=== PATIENT | male | born 1975 | race African-American/Black ===

== ENCOUNTER 2018-02-05 08:28 | Inpatient (IN) | payer BC ==
[2018-02-05] VITALS (11 sets, daily range): BP systolic 124–170; BP diastolic 68–105; PULSE 82–94; RESP 16–19; TEMP 97.6–99.8; O2SAT 98–100
[~2018-02-05] VITALS: Ht 180.3 cm; Wt 73.8 kg
[~2018-02-05 08:28] MED LIST: CARV12.5 PO; HYDR12.56 PO; HYDRA25 PO; PANT40IN3 PO; PRED20 PO; VENTAER INH; ZITH250T PO
[2018-02-05] MEDS ORDERED: SODIUM CHLOR 0.9% 1000 ML INJ 1,000 ML IV SCH (08:49)
--- NOTE | 2018-02-05 08:56 | PD ---
HPI Chief Complaint: Abnormal Results Time Seen by Provider: 08:40 Travel History International Travel<30 days: No Contact w/Intl Traveler<30days: No Traveled to known affect area: No History of Present Illness HPI The patient is a 42-year-old -[place] male who presents to the emergency department for generalized weakness. The patient states he was diagnosed one year ago polycystic kidney disease. Recently the patient has complained of epigastric abdominal pain, diarrhea, and generalized weakness. The patient saw his primary physician, Dr. Crenshaw, who ordered some outpatient test. The patient states he recently had blood work and a stress test, however, states had difficulty performing the stress test secondary to fatigue. The patient received a phone call today stating that his hemoglobin was 5 and the come to the emergency department for further evaluation. The patient does have a history of alcohol use, drinks approximately 4 beers daily. He does complain of mild epigastric discomfort as well as dark black colored stools that look like "mashed potatoes ". The patient has had a previous endoscopy and colonoscopy approximately 2-3 years ago, but cannot recall the name of the ball point splitter. He does complain of dyspnea upon exertion but denies any chest pain. Symptoms are alleviated at rest. The patient does have a history of hypertension but denies taking any anticoagulants. PFSH Past Medical History Cancer: No Cardiovascular Problems: Yes (HTN) High Cholesterol: Yes Diabetes: No Diminished Hearing: No Endocrine: No Gastrointestinal Disorders: Yes Genitourinary: Yes (polycystic kidney disease) Hypertension: Yes Immune Disorder: No Musculoskeletal: No Neurologic: No Psychiatric: No Reproductive: No Respiratory: Yes Immunizations Current: No Thyroid Disease: No Tetanus Vaccination: Unknown Influenza Vaccination: No Past Surgical History Abdominal Surgery: Yes ([id number]) AICD: No Cardiac Surgery: No Ear Surgery: No Endocrine Surgery: No Eye Surgery: No Genitourinary Surgery: No Oral Surgery: Yes (DENTAL- 2 TEETH PULL) Pacemaker: No Thoracic Surgery: No Other Surgery: Yes (RIGHT HAND FX) Social History Alcohol Use: Yes Tobacco Use: No Substance Use: No Allergies-Medications (Allergen,Severity, Reaction): Coded Allergies: clonidine (Unverified Allergy, Severe, LETHARGY, VOMITING,DIZZINESS, ) lisinopril (Unverified Allergy, Severe, Swelling, 04/09/17) nifedipine (Unverified Allergy, Intermediate, Swelling, 04/09/17) facial edema(mouth area), angioedema Reported Meds & Prescriptions Reported Meds & Active Scripts Active Reported Pantoprazole (Pantoprazole Sodium) 40 Mg Tab 40 Mg PO DAILY Carvedilol 12.5 Mg Tab 12.5 Mg PO BID Review of Systems Except as stated in HPI: all other systems reviewed are Neg General / Constitutional: No: Fever HENT: Positive: Lightheadedness Cardiovascular: Positive: Dyspnea on exertion, No: Chest Pain or Discomfort Respiratory: Positive: Shortness of Breath Gastrointestinal: Positive: Diarrhea, Abdominal Pain, Changes in Bowel Habits, No: Nausea, Vomiting Musculoskeletal: Positive: Weakness Neurologic: Positive: Weakness Physical Exam Narrative GENERAL: Awake, alert, pleasant 42-year-old male who appears his stated age and is in no acute respiratory distress. SKIN: Focused skin assessment warm/dry. HEAD: Atraumatic. Normocephalic. EYES: Pupils equal and round. Lower lids reveal pallor bilaterally. ENT: No nasal bleeding or discharge. Mucous membranes pink and moist. NECK: Trachea midline. No JVD. CARDIOVASCULAR: Regular rate and rhythm. No murmur appreciated. Heart rate in the 80s per RESPIRATORY: No accessory muscle use. Clear to auscultation. Breath sounds equal bilaterally. GASTROINTESTINAL: Abdomen soft, mild epigastric tenderness. No guarding or rigidity. Rectal: No gross blood. Guaiac negative. MUSCULOSKELETAL: No obvious deformities. No clubbing. No cyanosis. No edema. NEUROLOGICAL: Awake and alert. No obvious cranial nerve deficits. Motor grossly within normal limits. Normal speech. PSYCHIATRIC: Appropriate mood and affect; insight and judgment normal. Data Data Last Documented VS Vital Signs Date Time Temp Pulse Resp B/P (MAP) Pulse Ox O2 Delivery O2 Flow Rate FiO2 02/05/18 09:17 98 02/05/18 08:45 18 Room Air 02/05/18 08:31 97.6 89 129/68 (88) Orders Orders Complete Blood Count With Diff (02/05/18 08:49) Comprehensive Metabolic Panel (02/05/18 08:49) Lipase (02/05/18 08:49) Prothrombin Time / Inr (Pt) (02/05/18 08:49) Act Partial Throm Time (Ptt) (02/05/18 08:49) Alcohol (Ethanol) (02/05/18 08:49) Type And Screen (02/05/18 08:49) Ecg Monitoring (02/05/18 08:49) Iv Access Insert/Monitor (02/05/18 08:49) Oximetry (02/05/18 08:49) Pantoprazole Inj (Protonix Inj) (02/05/18 09:00) Sodium Chlor 0.9% 1000 Ml Inj (Ns 1000 M (02/05/18 08:49) Sodium Chloride 0.9% Flush (Ns Flush) (02/05/18 09:00) Retic Count (02/05/18 08:49) Ldh Serum (02/05/18 08:49) Iron/Tibc Profile (02/05/18 08:49) Red Blood Cells (Rbc) (02/05/18 09:39) Blood Product Administration (02/05/18 09:39) Sodium Chlor 0.9% 250 Ml Inj (Ns 250 Ml (02/05/18 09:45) Diphenhydramine Inj (Benadryl Inj) (02/05/18 09:45) Acetaminophen (Tylenol) (02/05/18 09:45) Labs Laboratory Tests Test 02/05/18 08:50 White Blood Count 6.1 TH/MM3 Red Blood Count 2.89 MIL/MM3 Hemoglobin 6.0 GM/DL Hematocrit 20.2 % Mean Corpuscular Volume 70.0 FL Mean Corpuscular Hemoglobin 20.9 PG Mean Corpuscular Hemoglobin Concent 29.8 % Red Cell Distribution Width 20.1 % Platelet Count 94 TH/MM3 Mean Platelet Volume 8.5 FL CBC Comment AUTO DIFF Reticulocyte Count 1.9 % Absolute Reticulocyte Count 54.8 MIL/L Prothrombin Time 10.5 SEC Prothromb Time International Ratio 1.0 RATIO Activated Partial Thromboplast Time 22.2 SEC Blood Urea Nitrogen 7 MG/DL Creatinine 1.15 MG/DL Random Glucose 79 MG/DL Total Protein 8.7 GM/DL Albumin 3.7 GM/DL Calcium Level 8.5 MG/DL Alkaline Phosphatase 178 U/L Aspartate Amino Transf (AST/SGOT) 134 U/L Alanine Aminotransferase (ALT/SGPT) 74 U/L Lactate Dehydrogenase 234 U/L Total Bilirubin 0.6 MG/DL Sodium Level 139 MEQ/L Potassium Level 3.7 MEQ/L Chloride Level 109 MEQ/L Carbon Dioxide Level 19.7 MEQ/L Anion Gap 10 MEQ/L Estimat Glomerular Filtration Rate 84 ML/MIN Iron Level 17 MCG/DL Total Iron Binding Capacity 567 MCG/DL Percent Iron Saturation 3.0 % Lipase 569 U/L Ethyl Alcohol Level 134 MG/DL [facility] Medical Decision Making Medical Screen Exam Complete: Yes Emergency Medical Condition: Yes Medical Record Reviewed: Yes Interpretation(s) Laboratory Tests Test 02/05/18 08:50 White Blood Count 6.1 TH/MM3 Red Blood Count 2.89 MIL/MM3 Hemoglobin 6.0 GM/DL Hematocrit 20.2 % Mean Corpuscular Volume 70.0 FL Mean Corpuscular Hemoglobin 20.9 PG Mean Corpuscular Hemoglobin Concent 29.8 % Red Cell Distribution Width 20.1 % Platelet Count 94 TH/MM3 Mean Platelet Volume 8.5 FL CBC Comment AUTO DIFF Reticulocyte Count 1.9 % Absolute Reticulocyte Count 54.8 MIL/L Prothrombin Time 10.5 SEC Prothromb Time International Ratio 1.0 RATIO Activated Partial Thromboplast Time 22.2 SEC Blood Urea Nitrogen 7 MG/DL Creatinine 1.15 MG/DL Random Glucose 79 MG/DL Total Protein 8.7 GM/DL Albumin 3.7 GM/DL Calcium Level 8.5 MG/DL Alkaline Phosphatase 178 U/L Aspartate Amino Transf (AST/SGOT) 134 U/L Alanine Aminotransferase (ALT/SGPT) 74 U/L Lactate Dehydrogenase 234 U/L Total Bilirubin 0.6 MG/DL Sodium Level 139 MEQ/L Potassium Level 3.7 MEQ/L Chloride Level 109 MEQ/L Carbon Dioxide Level 19.7 MEQ/L Anion Gap 10 MEQ/L Estimat Glomerular Filtration Rate 84 ML/MIN Iron Level 17 MCG/DL Total Iron Binding Capacity 567 MCG/DL Percent Iron Saturation 3.0 % Lipase 569 U/L Ethyl Alcohol Level 134 MG/DL Differential Diagnosis Differential diagnosis includes symptomatic anemia, iron deficiency anemia, GI bleed, peptic ulcer disease, gastritis, alcoholic gastritis, colon carcinoma. Narrative Course IV was established, labs are drawn and sent, and the patient was placed on cardiac telemetry monitoring and continuous pulse oximetry monitoring. EKG was ordered and interpreted. The patient was administer Protonix 40 mg intravenously. CBC and type and screen were sent to lab. The patient's hemoglobin was noted to be low at 6.0. The patient's iron and iron saturation is low, consistent with iron deficiency anemia the patient may have a GI bleed despite the negative rectal examination. The patient will benefit from blood transfusion and admission with gastroenterology evaluation. The patient may benefit from endoscopy and/or colonoscopy. The patient will be admitted to the on-call medical service, I ordered 2 units of PRBCs to be transfused. Patient is comfortable with this plan of care and disposition. Critical Care Narrative Aggregate critical care time was 35 minutes. Time to perform other separately billable procedures was not included in the critical care time. My time did not include minutes spent treating any other patients simultaneously or on activities that did not directly contribute to the patient's treatment. The services I provided to this patient were to treat and/or prevent clinically significant deterioration that could result in: Hemorrhage, hemorrhagic shock, cardiac ischemia, syncope. I provided critical care services requiring my management, as noted below: Chart data review, documentation time, medication orders and management, vital sign assessments/reviewing monitor data, ordering and reviewing lab tests, ordering and interpreting/reviewing x-rays and diagnostic studies, care of the patient and discussion of the patient with the admitting physicians. HemaPrompt Point of Care Internal Pos. & Neg. Controls: Passed Fecal Specimen Occult Blood: Negative Physician Communication Physician Communication The on-call medical service was paged for admission. Diagnosis Primary Impression: Symptomatic anemia Additional Impression: Elevated liver enzymes Admitting Information Admitting Physician Requests: Admit Condition: Stable Humble Becerra MD Feb 05, 2018 08:56
[2018-02-05] MEDS ORDERED: SODIUM CHLORIDE 0.9% FLUSH 10 ML FLUSH IVF PRN (09:00)
[2018-02-05] MEDS ORDERED: PANTOPRAZOLE SODIUM 40 MG VIAL IVP ONE (09:00)
[2018-02-05] MEDS ORDERED: PANT40TA3 PO (09:14)
[2018-02-05] MEDS ORDERED: CARV12.52 PO (09:14)
[2018-02-05 09:19] LABS: PROTHROMBIN TIME - PATIENT 10.5 SEC (9.8-11.6)
[2018-02-05 09:27] LABS: MEAN CORPUSCULAR HEMOGLOBIN 20.9 PG (27.0-34.0); MEAN PLATELET VOLUME 8.5 FL (7.0-11.0); PLATELET COUNT 94 TH/MM3 (150-450); RED BLOOD COUNT 2.89 MIL/MM3 (4.50-5.90); RED CELL DISTRIBUTION WIDTH 20.1 % (11.6-17.2); RETIC # 54.8 MIL/L (20.0-150.0); RETIC % 1.9 % (0.4-3.0); WHITE BLOOD COUNT 6.1 TH/MM3 (4.0-11.0)
[2018-02-05 09:32] LABS: ALBUMIN 3.7 GM/DL (3.4-5.0); ALT (GPT) 74 U/L (12-78); AST (GOT) 134 U/L (15-37); BICARBONATE 19.7 MEQ/L (21.0-32.0); BLOOD UREA NITROGEN 7 MG/DL (7-18); CALCIUM 8.5 MG/DL (8.5-10.1); CHLORIDE 109 MEQ/L (98-107); CREATININE 1.15 MG/DL (0.60-1.30); GLOMERULAR FILTRATION RATE 84 ML/MIN (>89); IRON (FE) 17 MCG/DL (65-175); MEAN CORPUSCULAR HGB CONC 29.8 % (32.0-36.0); SODIUM (NA) 139 MEQ/L (136-145)
[2018-02-05 09:33] LABS: GLUCOSE,RANDOM 79 MG/DL (74-106)
[2018-02-05 09:35] LABS: ALKALINE PHOSPHATASE 178 U/L (45-117); HEMATOCRIT 20.2 % (39.0-51.0); TOTAL BILIRUBIN ADULT 0.6 MG/DL (0.2-1.0); TOTAL IRON BINDING CAPACITY 567 MCG/DL (250-450); TOTAL PROTEIN 8.7 GM/DL (6.4-8.2)
[2018-02-05] MEDS ORDERED: SODIUM CHLOR 0.9% 250 ML INJ 250 ML IV ONE (09:45)
[2018-02-05] MEDS ORDERED: ACETAMINOPHEN 325 MG TAB PO PRN (09:45)
[2018-02-05] MEDS ORDERED: diphenhydrAMINE HCL 50 MG/ML VIAL IV PUSH PRN (09:45)
[2018-02-05 10:07] LABS: BASOPHILS 1 % (0-2); CORRECTED NUCLEATED RBC 1 /100 WBC (0-0); LYMPHOCYTES 13 % (9-44); MONOCYTES 9 % (0-8); NEUTROPHIL # MANUAL DIFF 4.6 TH/MM3 (1.8-7.7); NUCLEATED RED BLOOD CELL 1 (0-0); POLYS (SEG NEUTROPHILS) 75 % (16-70)
[2018-02-05 10:08] LABS: ACANTHOCYTES OCC (NORMAL)
[2018-02-05 10:09] LABS: TEARDROP RBCS 1+ (NORMAL)
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
[2018-02-05] MEDS ORDERED: DIATRIZOATE MEGLUM/DIATRIZOATE SOD 9 ML CUP PO ONE ×2 (15:15→15:30)
[2018-02-05] MEDS ORDERED: PEG (High)/E-LYTE SOLN 4000 ML BTL PO ONE (16:00)
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
[2018-02-05] MEDS ORDERED: IOHEXOL 350 MG/ML 10 ML VIAL (for RAD DIAG) IVCONTRAST ONE (20:35)
[2018-02-05] MEDS: PANTOPRAZOLE SODIUM 40 MG VIAL IV PUSH SCH (21:02)
[2018-02-05] MEDS: CARVEDILOL 12.5 MG TAB PO SCH (21:02)
[2018-02-05] MEDS: hydrALAZINE HCL 25 MG TAB PO SCH (21:12)
[2018-02-06] VITALS (14 sets, daily range): BP systolic 111–182; BP diastolic 68–107; PULSE 66–78; RESP 16–19; TEMP 97.3–99.1; O2SAT 93–100
[2018-02-06] MEDS: hydrALAZINE HCL 25 MG TAB PO SCH ×3 (06:02→21:09)
[2018-02-06 06:43] LABS: INTERNATIONAL NORMALIZED RATIO 1.1 RATIO; PROTHROMBIN TIME - PATIENT 11.1 SEC (9.8-11.6)
[2018-02-06 07:09] LABS: AUTOMATED NEUTROPHIL # 3.9 TH/MM3 (1.8-7.7); BASOPHIL # 0.1 TH/MM3 (0-0.2); BASOPHIL % 1.5 % (0.0-2.0); EOSINOPHIL # 0.2 TH/MM3 (0-0.4); EOSINOPHIL % 2.5 % (0.0-4.0); HEMOGLOBIN 7.2 GM/DL (13.0-17.0); LYMPH % 22.8 % (9.0-44.0); LYMPHOCYTE # 1.4 TH/MM3 (1.0-4.8); MEAN CORPUSCULAR HEMOGLOBIN 22.5 PG (27.0-34.0); MEAN CORPUSCULAR HGB CONC 31.3 % (32.0-36.0); MEAN PLATELET VOLUME 8.6 FL (7.0-11.0); MONO % 10.4 % (0.0-8.0); MONOCYTE # 0.6 TH/MM3 (0-0.9); NEUT % 62.8 % (16.0-70.0); PLATELET COUNT 75 TH/MM3 (150-450); RED BLOOD COUNT 3.19 MIL/MM3 (4.50-5.90); RED CELL DISTRIBUTION WIDTH 20.5 % (11.6-17.2); WHITE BLOOD COUNT 6.2 TH/MM3 (4.0-11.0)
[2018-02-06 07:14] LABS: ALBUMIN 3.1 GM/DL (3.4-5.0); AST (GOT) 87 U/L (15-37); BICARBONATE 22.4 MEQ/L (21.0-32.0); BLOOD UREA NITROGEN 5 MG/DL (7-18); CALCIUM 8.6 MG/DL (8.5-10.1); CHLORIDE 107 MEQ/L (98-107); CREATININE 0.98 MG/DL (0.60-1.30); GLOMERULAR FILTRATION RATE 101 ML/MIN (>89); GLUCOSE,RANDOM 80 MG/DL (74-106); SODIUM (NA) 140 MEQ/L (136-145)
[2018-02-06 07:15] LABS: ALKALINE PHOSPHATASE 148 U/L (45-117); ALT (GPT) 58 U/L (12-78); TOTAL PROTEIN 7.1 GM/DL (6.4-8.2)
[2018-02-06] MEDS: PANTOPRAZOLE SODIUM 40 MG VIAL IV PUSH SCH ×2 (08:19→21:09)
[2018-02-06] MEDS: CARVEDILOL 12.5 MG TAB PO SCH ×2 (08:19→21:09)
[2018-02-06 08:44] LABS: TEARDROP RBCS 1+ (NORMAL)
[2018-02-06] MEDS ORDERED: CHLORHEXIDINE GLUCONATE 2 % 1 PACK (2 CLOTHS) TOPICAL PRN (09:45)
[2018-02-06] MEDS ORDERED: SODIUM CHLORID 0.9% 500 ML IV PRN (09:45)
[2018-02-06] MEDS ORDERED: METOPROLOL TARTRATE 25 MG TAB PO PRN (09:45)
[2018-02-06] MEDS ORDERED: LACTATED RINGER'S 1000 ML IV PRN (09:45)
[2018-02-06] MEDS ORDERED: POVIDONE IODINE 5% (ANTISEPSIS KIT) 4 APPLICATIONS EACH NARE PRN (09:45)
[2018-02-06] MEDS ORDERED: PROPOFOL 200 MG/20 ML AMP IV ONE (12:00)
--- NOTE | 2018-02-06 13:19 | GIPROC ---
[facility] [address] [facility]. [facility], [address] EGD PROCEDURE REPORT EXAM DATE: 02/06/2018 PATIENT NAME: Albin Torres MR #: [id number] BIRTHDATE: 1975 ATTENDING: Kenneth Jones MD ORDER #: [id number] LOOK OUT TOWER FIRE WATCHER: Jamin Cleary and Aria Goel STATUS: inpatient INDICATIONS: The patient is a 42 yr old male here for an EGD due to anemia PROCEDURE PERFORMED: EGD w/ biopsy MEDICATIONS: None and Per Anesthesia. TOPICAL ANESTHETIC: none CONSENT: The patient understands the risks and benefits of the procedure and understands that these risks include, but are not limited to: sedation, allergic reaction, infection, perforation and/or bleeding. Alternative means of evaluation and treatment include, among others: physical exam, x-rays, and/or surgical intervention. The patient elects to proceed with this endoscopic procedure. medical equipment was checked for proper function. Hand hygiene and appropriate measures for infection prevention was taken. After the risks, benefits and alternatives of the procedure were thoroughly explained, Informed consent was verified, confirmed and timeout was successfully executed by the treatment team. The patient was anesthetized with topical anesthesia and the EC-3490Li (Pedi C) endoscope was introduced through the mouth and advanced to the second portion of the duodenum. Retroflexion was performed and was normal The gastroscope was then slowly withdrawn and removed. ESOPHAGUS: There was LA Class A esophagitis noted. Multiple biopsies were performed. A small hiatal hernia was noted. STOMACH: The mucosa of the stomach appeared normal. DUODENUM: The duodenal mucosa appeared normal in the duodenal bulb, 2nd part duodenum, and 3rd part duodenum. ADVERSE EVENTS: There were no complications. IMPRESSIONS: 1. There was esophagitis noted; multiple biopsies were performed to role out Cathy 2. Small hiatal hernia 3. The mucosa of the stomach appeared normal 4. Normal duodenal mucosa in the duodenal bulb, 2nd part duodenum, and 3rd part duodenum 5. Retroflexion was performed and was normal RECOMMENDATIONS: 1. Await biopsy results. Biopsy results will not be ready for 7-10 days. If you don't hear from us in two weeks, call our office for biopsy results. 2. Xray: Small bowel follow through PATIENT CONDITION: stable DISPOSITION: Observation REPEAT EXAM: NONE Kenneth Jones MD eSigned: Kenneth Jones MD 02/06/2018 1:18 PM cc: PATIENT NAME: Albin Torres MR#: [id number]
--- NOTE | 2018-02-06 13:26 | GIPROC ---
[facility] [address] [facility]. [facility], [address] COLONOSCOPY PROCEDURE REPORT EXAM DATE: 02/06/2018 PATIENT NAME: lAbin Torres MR #: [id number] BIRTHDATE: 1975 ENDOSCOPIST: Kenneth Jones MD ORDER #: [id number] DIRECTOR PHARMACOLOGY: Jamin Cleary and Aria Goel STATUS: inpatient INDICATIONS: The patient is a 42 yr old male here for a colonoscopy due to anemia, non-specific PROCEDURE PERFORMED: Colonoscopy with polypectomy MEDICATIONS: None and Per Anesthesia. PREP QUALITY: poor PREP TYPE:GoLytely ESTIMATED BLOOD LOSS: None CONSENT: The patient understands the risks and benefits of the procedure and understands that these risks include, but are not limited to: sedation, allergic reaction, infection, perforation and/or bleeding. Alternative means of evaluation and treatment include, among others: physical exam, x-rays, and/or surgical intervention. The patient elects to proceed with this endoscopic procedure. medical equipment was checked for proper function. Hand hygiene and appropriate measures for infection prevention was taken. After the risks, benefits and alternatives of the procedure were thoroughly explained, Informed consent was verified, confirmed and timeout was successfully executed by the treatment team. A digital exam revealed no abnormalities of the rectum The Pentax EC-3490Li endoscope was introduced through the anus and advanced to the cecum, which was identified by both the appendix and ileocecal valve. The instrument was then slowly withdrawn as the colon was fully examined. COLON FINDINGS: Trace amounts of stool were present throughout the entire examined colon. A smooth and polypoid shaped sessile polyp ranging between 3-5mm in size was found in the sigmoid colon. A polypectomy was performed with cold forceps. The resection was complete and the polyp tissue was completely retrieved. Moderate sized internal hemorrhoids were found. Retroflexed views revealed no abnormalities The scope was then completely withdrawn from the patient and the procedure terminated. PROCEDURE WITHDRAWAL TIME:8minutes ADVERSE EVENTS: There were no complications. IMPRESSIONS: 1. Trace amounts of stool were present throughout the entire examined colon limiting the exam 2. A sessile polyp ranging between 3-5mm in size was found in the sigmoid colon; polypectomy was performed with cold forceps 3. Moderate sized internal hemorrhoids RECOMMENDATIONS: 1. Await biopsy results. Biopsy results will not be ready for 7-10 days. If you don't hear from us in two weeks, call our office for results. 2. Xray for Small bowel follow through RECALL: Return 3 months Colonoscopy with better prep. Kenneth Jones MD eSigned: Kenneth Jones MD 02/06/2018 1:25 PM cc:
[2018-02-06] MEDS ORDERED: SODIUM CHLOR 0.9% 250 ML INJ 250 ML IV ONE (15:00)
[2018-02-06] MEDS ORDERED: FUROSEMIDE 20 MG/2 ML VIAL IV PUSH ONE (15:00)
[2018-02-06] MEDS ORDERED: ACETAMINOPHEN 325 MG TAB PO PRN (15:00)
[2018-02-06] MEDS ORDERED: diphenhydrAMINE HCL 25 MG CAP PO PRN (15:00)
[2018-02-06 16:10] LABS: HEMATOCRIT 26.4 % (39.0-51.0); HEMOGLOBIN 8.2 GM/DL (13.0-17.0); MEAN CELL VOLUME 71.7 FL (80.0-100.0); MEAN CORPUSCULAR HEMOGLOBIN 22.4 PG (27.0-34.0); MEAN CORPUSCULAR HGB CONC 31.3 % (32.0-36.0); MEAN PLATELET VOLUME 8.4 FL (7.0-11.0); PLATELET COUNT 94 TH/MM3 (150-450); RED BLOOD COUNT 3.68 MIL/MM3 (4.50-5.90); RED CELL DISTRIBUTION WIDTH 20.5 % (11.6-17.2); WHITE BLOOD COUNT 6.7 TH/MM3 (4.0-11.0)
--- NOTE | 2018-02-06 16:20 | HHI.PR ---
Subjective Remarks The patient denies abdominal pain, planes of abdominal distention. Denies nausea or vomiting. States that initially dark stools had subsided, however went to the restroom later and had one episode of dark stool. Denies dizziness Blood pressure noted to be elevated. Objective Vitals Vital Signs Date Time Temp Pulse Resp B/P (MAP) Pulse Ox O2 Delivery O2 Flow Rate FiO2 02/06/18 16:00 98.1 77 18 182/99 (126) 100 02/06/18 13:04 98.3 72 18 154/92 (112) 100 02/06/18 12:00 97.7 78 18 148/86 (106) 100 02/06/18 08:00 98.7 73 18 155/70 (98) 100 02/06/18 03:49 98.4 72 19 162/87 (112) 99 02/06/18 00:00 98.3 75 17 158/97 (117) 100 02/05/18 21:14 97.9 88 19 154/102 100 02/05/18 21:00 99.8 83 19 164/99 100 02/05/18 20:00 98.3 87 17 167/92 (117) 100 02/05/18 16:53 99.6 89 16 165/105 100 02/05/18 16:44 99.4 94 16 162/102 100 02/05/18 16:33 99.4 82 16 167/104 100 02/05/18 16:21 99.6 85 16 170/98 100 I/O 02/05/18 02/05/18 02/05/18 02/06/18 02/06/18 02/06/18 07:00 15:00 23:00 07:00 15:00 23:00 Intake Total 820 ml 300 ml 250 ml Balance 820 ml 300 ml 250 ml Intake Oral 300 ml Packed Cells 800 ml Blood Product IV Normal Saline Flush 20 ml Other 250 ml # Voids 3 3 # Bowel Movements 2 1 Result Diagram: 02/06/1861102/06/18611 Imaging Last Impressions Abdomen/Pelvis CT 02/05/18 0000 Signed Impressions: CONCLUSION: 1. Nonspecific fluid distention of the colon. 2. Polycystic kidneys. 3. Hepatic steatosis. 4. Gallstones. Objective Remarks AAOx3 NAD Pale conjunctiva Procedures Status post EGD which showed esophagitis, biopsies performed. Small hiatal hernia. Status post colonoscopy which showed trace amount of stool therefore limited exam. A sessile polyp ranging between 3-5 mm in size found in the sigmoid colon. Polypectomy was performed with cold forceps. Moderate sized internal hemorrhoids. A/P Problem List: (1) Symptomatic anemia ICD Code: D64.9 - Anemia, unspecified Status: Acute Plan: Most likely due to GI bleed. EGD and colonoscopy performed today and as described above. TAYLOR globin trended up from 6.0 to seven-point 2:02 units of packed red blood cells. Transfuse 2 units of packed red blood cells for hemoglobin goal of more than 90. Continue to monitor hemoglobin. Continue PPI. Diet as per question GI recommendations. (2) Generalized weakness ICD Code: R53.1 - Weakness Status: Acute Plan: Likely secondary to symptomatic anemia. Managed as above. (3) Hypertension ICD Code: I10 - Essential (primary) hypertension Status: Chronic Plan: Seems to be uncontrolled at this moment. Patient currently on carvedilol 12.5 minutes p.o. twice daily. Increase hydralazine dose to 50 mg p.o. every 8 hours. Placed on clonidine as needed for systolic blood pressure more than 160. (4) Alcohol intoxication ICD Code: F10.929 - Alcohol use, unspecified with intoxication, unspecified Plan: Alcohol level on admission at 134. There seems to be a component of alcohol abuse. There are no signs of active withdrawal. Consult about negative health effects of alcohol and encourage alcohol cessation /abstinence. (5) Transaminitis ICD Code: R74.0 - Nonspecific elevation of levels of transaminase and lactic acid dehydrogenase [LDH] Status: Acute Plan: Patient with elevated AST at 134 which is trending down. Continue to monitor LFTs. Likely secondary to alcohol abuse. Will check hepatitis profile. (6) Elevated lipase ICD Code: R74.8 - Abnormal levels of other serum enzymes Status: Acute Plan: Enzymes not elevated enough to be diagnostic of acute pancreatitis. Likely elevated secondary to esophagitis. Continue PPI. Problem Qualifiers (1) Hypertension: Qualified Codes: I10 - Essential (primary) hypertension (2) Alcohol intoxication: Qualified Codes: F10.920 - Alcohol use, unspecified with intoxication, uncomplicated Rajinder Mcclure MD Feb 06, 2018 16:19
[2018-02-06] MEDS ORDERED: cloNIDine HCL 0.1 MG TAB PO PRN (16:30)
[2018-02-07 02:11] VITALS: BP 160/90; PULSE 66
[2018-02-07 04:40] VITALS: BP 184/100; PULSE 63; RESP 20; TEMP 98.9; O2SAT 100
[2018-02-07] MEDS: hydrALAZINE HCL 25 MG TAB PO SCH (05:36)
[2018-02-07] MEDS: PANTOPRAZOLE SODIUM 40 MG VIAL IV PUSH SCH ×2 (07:26→21:04)
[2018-02-07] MEDS: CARVEDILOL 12.5 MG TAB PO SCH ×2 (07:26→21:04)
[2018-02-07 07:35] VITALS: BP 177/103; PULSE 68; RESP 19; TEMP 97.7; O2SAT 100
[2018-02-07] MEDS ORDERED: hydrALAZINE HCL 25 MG TAB PO ONE (09:45)
--- NOTE | 2018-02-07 09:48 | HHI.PR ---
Subjective Remarks BP severely elevated Patient denies any further melanotic stools. Denies abdominal pain, nausea. Denies cp/sob Objective Vitals Vital Signs Date Time Temp Pulse Resp B/P (MAP) Pulse Ox O2 Delivery O2 Flow Rate FiO2 02/07/18 07:35 97.7 68 19 177/103 (127) 100 02/07/18 04:40 98.9 63 20 184/100 (128) 100 02/07/18 02:11 66 160/90 (113) 02/06/18 23:20 98.7 68 18 178/102 (127) 02/06/18 23:20 98.7 68 18 178/102 100 02/06/18 21:30 97.9 76 18 172/107 100 02/06/18 21:04 97.3 71 18 175/105 100 02/06/18 19:57 98.5 66 18 160/106 (124) 100 02/06/18 19:19 160/104 (122) 02/06/18 17:48 98.4 73 16 153/92 100 02/06/18 17:32 98.1 74 16 157/89 100 02/06/18 17:17 72 16 167/93 100 02/06/18 17:15 98.3 70 16 159/99 100 02/06/18 16:00 98.1 77 18 182/99 (126) 100 02/06/18 13:04 98.3 72 18 154/92 (112) 100 02/06/18 12:00 97.7 78 18 148/86 (106) 100 I/O 02/06/18 02/06/18 02/06/18 02/07/18 02/07/18 02/07/18 07:00 15:00 23:00 07:00 15:00 23:00 Intake Total 300 ml 250 ml 430 ml 410 ml Balance 300 ml 250 ml 430 ml 410 ml Intake Oral 300 ml Packed Cells 400 ml 400 ml Blood Product IV Normal Saline Flush 30 ml 10 ml Other 250 ml # Voids 3 3 2 1 # Bowel Movements 2 1 Result Diagram: 02/06/18 1515 02/06/18 0612 Imaging Last Impressions Abdomen/Pelvis CT 02/05/18 0000 Signed Impressions: CONCLUSION: 1. Nonspecific fluid distention of the colon. 2. Polycystic kidneys. 3. Hepatic steatosis. 4. Gallstones. Objective Remarks AAOx3 NAD Pale conjunctiva Procedures Status post EGD which showed esophagitis, biopsies performed. Small hiatal hernia. Status post colonoscopy which showed trace amount of stool therefore limited exam. A sessile polyp ranging between 3-5 mm in size found in the sigmoid colon. Polypectomy was performed with cold forceps. Moderate sized internal hemorrhoids. A/P Problem List: (1) Symptomatic anemia ICD Code: D64.9 - Anemia, unspecified Status: Acute Plan: Most likely due to GI bleed. EGD and colonoscopy performed today and as described above. TAYLOR globin trended up from 6.0 to seven-point 2:02 units of packed red blood cells. Transfuse 2 units of packed red blood cells for hemoglobin goal of more than 90. Continue to monitor hemoglobin. Continue PPI. Diet as per question GI recommendations. 02/07 is 9:45 AM and a.m. labs ordered are still pending. The patient denies any further melena and has not had a bowel movement since yesterday. Diet as tolerated. (2) Generalized weakness ICD Code: R53.1 - Weakness Status: Acute Plan: Likely secondary to symptomatic anemia. Managed as above. (3) Hypertension ICD Code: I10 - Essential (primary) hypertension Status: Chronic Plan: Seems to be uncontrolled at this moment. Patient currently on carvedilol 12.5 minutes p.o. twice daily. Increase hydralazine dose to 50 mg p.o. every 8 hours. Placed on clonidine as needed for systolic blood pressure more than 160. 02/07 patient with severely elevated blood pressure. Increase hydralazine to 75 mg p.o. 3 times daily, continue Coreg at 12.5 mg p.o. twice daily. We will discontinue clonidine as needed since the patient is allergic to this medication and will place on Vasotec IV as needed for systolic blood pressure more than 160. (4) Alcohol intoxication ICD Code: F10.929 - Alcohol use, unspecified with intoxication, unspecified Plan: Alcohol level on admission at 134. There seems to be a component of alcohol abuse. There are no signs of active withdrawal. Consult about negative health effects of alcohol and encourage alcohol cessation /abstinence. (5) Transaminitis ICD Code: R74.0 - Nonspecific elevation of levels of transaminase and lactic acid dehydrogenase [LDH] Status: Acute Plan: Patient with elevated AST at 134 which is trending down. Continue to monitor LFTs. Likely secondary to alcohol abuse. Will check hepatitis profile. 02/07 labs pending. (6) Elevated lipase ICD Code: R74.8 - Abnormal levels of other serum enzymes Status: Acute Plan: Enzymes not elevated enough to be diagnostic of acute pancreatitis. Likely elevated secondary to esophagitis. Continue PPI. (7) Polycystic kidney disease ICD Code: Q61.3 - Polycystic kidney, unspecified Status: Acute Plan: With normal kidney function. Follow-up as an outpatient. (8) Hepatic steatosis ICD Code: K76.0 - Fatty (change of) liver, not elsewhere classified Plan: Likely contributing to increased AST. Recommended alcohol cessation. (9) Cholelithiasis ICD Code: K80.20 - Calculus of gallbladder without cholecystitis without obstruction Status: Acute Plan: Patient asymptomatic without abdominal pain. There is no need for cholecystectomy at this time. Follow-up as an outpatient. Problem Qualifiers (1) Hypertension: Qualified Codes: I10 - Essential (primary) hypertension (2) Alcohol intoxication: Qualified Codes: F10.920 - Alcohol use, unspecified with intoxication, uncomplicated (3) Cholelithiasis: Qualified Codes: K80.20 - Calculus of gallbladder without cholecystitis without obstruction Rajinder Mcclure MD Feb 07, 2018 09:48
[2018-02-07 09:59] LABS: AUTOMATED NEUTROPHIL # 4.8 TH/MM3 (1.8-7.7); BASOPHIL # 0.1 TH/MM3 (0-0.2); BASOPHIL % 1.4 % (0.0-2.0); EOSINOPHIL # 0.2 TH/MM3 (0-0.4); EOSINOPHIL % 3.1 % (0.0-4.0); HEMATOCRIT 30.9 % (39.0-51.0); HEMOGLOBIN 9.9 GM/DL (13.0-17.0); LYMPH % 18.5 % (9.0-44.0); LYMPHOCYTE # 1.3 TH/MM3 (1.0-4.8); MEAN CORPUSCULAR HEMOGLOBIN 23.7 PG (27.0-34.0); MEAN PLATELET VOLUME 8.6 FL (7.0-11.0); MONO % 9.4 % (0.0-8.0); MONOCYTE # 0.7 TH/MM3 (0-0.9); NEUT % 67.6 % (16.0-70.0); PLATELET COUNT 91 TH/MM3 (150-450); RED BLOOD COUNT 4.18 MIL/MM3 (4.50-5.90); RED CELL DISTRIBUTION WIDTH 20.8 % (11.6-17.2); WHITE BLOOD COUNT 7.1 TH/MM3 (4.0-11.0)
[2018-02-07] MEDS ORDERED: ENALAPRILAT 1.25 MG/ML VIAL IV PUSH PRN (10:00)
[2018-02-07 10:37] LABS: TEARDROP RBCS 1+ (NORMAL)
[2018-02-07 11:46] LABS: ALBUMIN 3.3 GM/DL (3.4-5.0); AST (GOT) 65 U/L (15-37); BICARBONATE 25.6 MEQ/L (21.0-32.0); BLOOD UREA NITROGEN 7 MG/DL (7-18); CALCIUM 8.6 MG/DL (8.5-10.1); CHLORIDE 101 MEQ/L (98-107); CREATININE 0.98 MG/DL (0.60-1.30); GLOMERULAR FILTRATION RATE 101 ML/MIN (>89); GLUCOSE,RANDOM 73 MG/DL (74-106); SODIUM (NA) 138 MEQ/L (136-145)
[2018-02-07 11:51] LABS: ALKALINE PHOSPHATASE 141 U/L (45-117); ALT (GPT) 52 U/L (12-78); MAGNESIUM 1.9 MG/DL (1.5-2.5); PHOSPHORUS 4.2 MG/DL (2.5-4.9); TOTAL BILIRUBIN ADULT 0.8 MG/DL (0.2-1.0); TOTAL PROTEIN 7.9 GM/DL (6.4-8.2)
[2018-02-07 12:09] VITALS: BP 177/106; PULSE 67; RESP 20; TEMP 97.9; O2SAT 100
--- NOTE | 2018-02-07 13:27 | HHI.PR ---
Objective Vitals Vital Signs Date Time Temp Pulse Resp B/P (MAP) Pulse Ox O2 Delivery O2 Flow Rate FiO2 02/07/18 12:09 97.9 67 20 177/106 (129) 100 02/07/18 07:35 97.7 68 19 177/103 (127) 100 02/07/18 04:40 98.9 63 20 184/100 (128) 100 02/07/18 02:11 66 160/90 (113) 02/06/18 23:20 98.7 68 18 178/102 (127) 02/06/18 23:20 98.7 68 18 178/102 100 02/06/18 21:30 97.9 76 18 172/107 100 02/06/18 21:04 97.3 71 18 175/105 100 02/06/18 19:57 98.5 66 18 160/106 (124) 100 02/06/18 19:19 160/104 (122) 02/06/18 17:48 98.4 73 16 153/92 100 02/06/18 17:32 98.1 74 16 157/89 100 02/06/18 17:17 72 16 167/93 100 02/06/18 17:15 98.3 70 16 159/99 100 02/06/18 16:00 98.1 77 18 182/99 (126) 100 I/O 02/06/18 02/06/18 02/06/18 02/07/18 02/07/18 02/07/18 07:00 15:00 23:00 07:00 15:00 23:00 Intake Total 300 ml 250 ml 430 ml 410 ml Balance 300 ml 250 ml 430 ml 410 ml Intake Oral 300 ml Packed Cells 400 ml 400 ml Blood Product IV Normal Saline Flush 30 ml 10 ml Other 250 ml # Voids 3 3 2 1 # Bowel Movements 2 1 Result Diagram: 02/07/18 0745 02/07/18 0745 Imaging Last Impressions Small Bowel X-Ray 02/07/18 0600 Signed Impressions: CONCLUSION: Negative for obstruction. Subtle abnormalities cannot be excluded with Gastrografin. Abdomen/Pelvis CT 02/05/18 0000 Signed Impressions: CONCLUSION: 1. Nonspecific fluid distention of the colon. 2. Polycystic kidneys. 3. Hepatic steatosis. 4. Gallstones. Objective Remarks AAOx3 NAD Pale conjunctiva Procedures Status post EGD which showed esophagitis, biopsies performed. Small hiatal hernia. Status post colonoscopy which showed trace amount of stool therefore limited exam. A sessile polyp ranging between 3-5 mm in size found in the sigmoid colon. Polypectomy was performed with cold forceps. Moderate sized internal hemorrhoids. A/P Problem List: (1) Symptomatic anemia ICD Code: D64.9 - Anemia, unspecified Status: Acute Plan: Acute posthemorrhagic anemia due to GI bleed Most likely due to GI bleed. EGD and colonoscopy performed today and as described above. TAYLOR globin trended up from 6.0 to seven-point 2:02 units of packed red blood cells. Transfuse 2 units of packed red blood cells for hemoglobin goal of more than 90. Continue to monitor hemoglobin. Continue PPI. Diet as per question GI recommendations. 02/07 at 9:45 AM and a.m. labs ordered are still pending. The patient denies any further melena and has not had a bowel movement since yesterday. Diet as tolerated. (2) Generalized weakness ICD Code: R53.1 - Weakness Status: Acute Plan: Likely secondary to symptomatic anemia. Managed as above. (3) Hypertension ICD Code: I10 - Essential (primary) hypertension Status: Chronic Plan: Seems to be uncontrolled at this moment. Patient currently on carvedilol 12.5 minutes p.o. twice daily. Increase hydralazine dose to 50 mg p.o. every 8 hours. Placed on clonidine as needed for systolic blood pressure more than 160. 02/07 patient with severely elevated blood pressure. Increase hydralazine to 100 mg p.o. 3 times daily, continue Coreg at 12.5 mg p.o. twice daily. Dc clonidine as needed. (4) Alcohol intoxication ICD Code: F10.929 - Alcohol use, unspecified with intoxication, unspecified Plan: Alcohol level on admission at 134. There seems to be a component of alcohol abuse. There are no signs of active withdrawal. Consult about negative health effects of alcohol and encourage alcohol cessation /abstinence. (5) Transaminitis ICD Code: R74.0 - Nonspecific elevation of levels of transaminase and lactic acid dehydrogenase [LDH] Status: Acute Plan: Patient with elevated AST at 134 which is trending down. Continue to monitor LFTs. Likely secondary to alcohol abuse. Will check hepatitis profile. 02/07 labs pending. (6) Elevated lipase ICD Code: R74.8 - Abnormal levels of other serum enzymes Status: Acute (7) Polycystic kidney disease ICD Code: Q61.3 - Polycystic kidney, unspecified Status: Acute (8) Hepatic steatosis ICD Code: K76.0 - Fatty (change of) liver, not elsewhere classified (9) Cholelithiasis ICD Code: K80.20 - Calculus of gallbladder without cholecystitis without obstruction Status: Acute Problem Qualifiers (1) Hypertension: Qualified Codes: I10 - Essential (primary) hypertension (2) Alcohol intoxication: Qualified Codes: F10.920 - Alcohol use, unspecified with intoxication, uncomplicated (3) Cholelithiasis: Qualified Codes: K80.20 - Calculus of gallbladder without cholecystitis without obstruction Rajinder Mcclure MD Feb 07, 2018 13:27
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
--- NOTE | 2018-02-07 13:47 | HHI.GIFU ---
Subjective Remarks Patient is resting in the bed, Denies any current nausea or vomiting, dyspepsia seems to be controlled Patient states chronic diarrhea but none now Hemoglobin 9.9 Increased generalized anxiety (Michaela Gentile) Objective Vitals I&O Vital Signs Date Time Temp Pulse Resp B/P (MAP) Pulse Ox O2 Delivery O2 Flow Rate FiO2 02/07/18 12:09 97.9 67 20 177/106 (129) 100 02/07/18 07:35 97.7 68 19 177/103 (127) 100 02/07/18 04:40 98.9 63 20 184/100 (128) 100 02/07/18 02:11 66 160/90 (113) 02/06/18 23:20 98.7 68 18 178/102 (127) 02/06/18 23:20 98.7 68 18 178/102 100 02/06/18 21:30 97.9 76 18 172/107 100 02/06/18 21:04 97.3 71 18 175/105 100 02/06/18 19:57 98.5 66 18 160/106 (124) 100 02/06/18 19:19 160/104 (122) 02/06/18 17:48 98.4 73 16 153/92 100 02/06/18 17:32 98.1 74 16 157/89 100 02/06/18 17:17 72 16 167/93 100 02/06/18 17:15 98.3 70 16 159/99 100 02/06/18 16:00 98.1 77 18 182/99 (126) 100 I/O 02/06/18 02/06/18 02/06/18 02/07/18 02/07/18 02/07/18 07:00 15:00 23:00 07:00 15:00 23:00 Intake Total 300 ml 250 ml 430 ml 410 ml Balance 300 ml 250 ml 430 ml 410 ml Intake Oral 300 ml Packed Cells 400 ml 400 ml Blood Product IV Normal Saline Flush 30 ml 10 ml Other 250 ml # Voids 3 3 2 1 # Bowel Movements 2 1 Laboratory Laboratory Tests Test 02/06/18 15:15 02/07/18 07:45 White Blood Count 6.7 7.1 Red Blood Count 3.68 4.18 Hemoglobin 8.2 9.9 Hematocrit 26.4 30.9 Mean Corpuscular Volume 71.7 74.0 Mean Corpuscular Hemoglobin 22.4 23.7 Mean Corpuscular Hemoglobin Concent 31.3 32.0 Red Cell Distribution Width 20.5 20.8 Platelet Count 94 91 Mean Platelet Volume 8.4 8.6 Neutrophils (%) (Auto) 67.6 Lymphocytes (%) (Auto) 18.5 Monocytes (%) (Auto) 9.4 Eosinophils (%) (Auto) 3.1 Basophils (%) (Auto) 1.4 Neutrophils # (Auto) 4.8 Lymphocytes # (Auto) 1.3 Monocytes # (Auto) 0.7 Eosinophils # (Auto) 0.2 Basophils # (Auto) 0.1 CBC Comment AUTO DIFF Differential Comment AUTO DIFF CONFIRMED Platelet Estimate LOW Platelet Morphology Comment NORMAL Tear Drop Cells 1+ Blood Urea Nitrogen 7 Creatinine 0.98 Random Glucose 73 Total Protein 7.9 Albumin 3.3 Calcium Level 8.6 Phosphorus Level 4.2 Magnesium Level 1.9 Alkaline Phosphatase 141 Aspartate Amino Transf (AST/SGOT) 65 Alanine Aminotransferase (ALT/SGPT) 52 Total Bilirubin 0.8 Sodium Level 138 Potassium Level 3.3 Chloride Level 101 Carbon Dioxide Level 25.6 Anion Gap 11 Estimat Glomerular Filtration Rate 101 Hepatitis A IgM Antibody NONREACTIVE Hepatitis B Surface Antigen NONREACTIVE Hepatitis B Core IgM Antibody NONREACTIVE Hepatitis C IgG Antibody NONREACTIVE Imaging Last Impressions Small Bowel X-Ray 02/07/18 0600 Signed Impressions: CONCLUSION: Negative for obstruction. Subtle abnormalities cannot be excluded with Gastrografin. Abdomen/Pelvis CT 02/05/18 0000 Signed Impressions: CONCLUSION: 1. Nonspecific fluid distention of the colon. 2. Polycystic kidneys. 3. Hepatic steatosis. 4. Gallstones. Physical Exam HEENT: Pupils round and reactive to light; normocephalic; atraumatic; no jaundice. Throat is clear. NECK: Neck is supple, no JVD, no lymphadenopathy. CHEST: Chest is clear to auscultation and percussion. CARDIAC: Regular rate and rhythm with no murmur gallop or rubs. ABDOMEN: Soft, nondistended, nontender; no hepatosplenomegaly; bowel sounds are present in all four quadrants. EXTREMITIES: No clubbing, cyanosis, or edema. SKIN: Normal; no rash; no jaundice. [employer]: No focal deficits; alert and oriented times three. (Michaela Gentile Assessment and Plan Plan Assessment: - Anemia - microcytic, hypochromic Denies history of anemia, previous blood transfusions, taking iron or B12 supplements - Diarrhea for the past almost two years with urgency and occasional incontinence. States that he has noticed black stools. - Nausea and vomiting for that period of time, sporadic throughout the day, not related to PO intake. Has noticed BRB in his vomit but none in the past month. - Daily acid reflux only mildly controlled by Protonix. Complaints of dysphagia with solids, his food gets stuck occasionally and he has to drink water to help pass it. - Abdominal pain, generalized, described as a cramping sensation, intermittent. Does not notice any aggravating or alleviating factors. - Unintentional weight loss of 60 pounds over the past six months. Last EGD and colonoscopy in January 2016 --> Colonic mucosa appeared normal throughout entire examined colon, moderate sized internal hemorrhoids. Suspected short segment Nice's esophagus in the lower 3rd of the esophagus, biopsy. Schatzki's ring was found in lower third of the esophagus. Mild gastritis in the gastric antrum. Normal duodenum. - ETOH abuse- currently drinks a pack of beer a day, states last drink was this morning before work. History of liver biopsy in February 2016 --> Findings consistent with steatohepatitis. 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 Associated with fibrous portal expansion and early bridging fibrosis, cirrhosis not identified. 02/07/2018, reviewed EGD and colonoscopy findings with the patient that was completed on 02/06/2018, EGD colonoscopy S/P EGD/Colonoscopy, esophagitis noted; multiple biopsies done. Small hiatal hernia, mucosa of the stomach appeared normal Normal duodenal mucosa in the duodenal bulb, 2nd part duodenum, and 3rd part duodenum, Retroflexion was performed and was normal Trace amounts of stool were present sessile polyp ranging between 3-5mm in size was found in the sigmoid colon; polypectomy was performed with cold forceps Moderate sized internal hemorrhoids. Patient also had small bowel follow-through x-rays which showed no obstruction. CT abd/pelvis showed nonspecific fluid distention of the colon Polycystic kidneys, hepatic steatosis and gallstones. Patient stated that he has been told in the past that he needed to get a HIDA scan. He is requesting that that be done this admission and then states he does have some generalized abdominal pain. Patient was very nervous about his EGD colonoscopy findings. Supportive care given current hemoglobin 9.9. Patient notes generalized abdominal pain on admission but is feeling somewhat better now. Concerned over weight loss 60 pounds over a six-month period of time noted above. Plan: diet HIDA scan Monitor labs Protonix ETOH cessation Repeat Colonoscopy 3 months with better prep. Supportive care, Further recommendations based on clinical course and results of above Pt has been seen and examined by myself and Dr. Jones and this note is written on his behalf (Michaela Gentile) Physician Comments Seen and examined, findings discussed with patient. Will need Capsule Endoscopy and repeat Colonoscopy with better bowel prep., both to be done as out patient. (Kenneth Jones MD) Michaela Gentile Feb 07, 2018 13:47 Kenneth Jones MD Feb 07, 2018 23:26
[2018-02-07] MEDS: hydrALAZINE HCL 100 MG TAB PO SCH ×2 (13:52→21:04)
[2018-02-07] MEDS ORDERED: hydrALAZINE HCL 25 MG TAB PO SCH (14:00)
--- NOTE | 2018-02-07 15:00 | PQ ---
Physician Query Response Document PATIENT: ELVIN MENDOZA : 1975 ADMIT DATE: 02/05/2018 9:45 AM DISCH DATE: RESPONDING PROVIDER #: [email or web address] QUERY TEXT: CDS Clarification Acute posthemorrhagic anemia in the setting of H Other explanation of clinical findings. Unable to determine (no explanation for clinical findings). The patient's Clinical Indicators include: * Clinical Indicators: H * Risk Factors: Alcohol abuse, Gastritis * Treatment: IVF, Transfusion of 4 UPC, GI consult IV PPI Serial labs,EGD and Colonoscopy Please clarify and document your clinical opinion in the progress notes and discharge summary includi ng the definitive and/or presumptive diagnosis (suspected or probable), related to the above clinical findings. Please include clinical findings supporting your diagnosis. Thank you, Wendie Martinez : CDS/RN ext. [phone] Query created by: Wendie Martinez on 02/07/2018 2:26 PM RESPONSE TEXT: Acute posthemorrhagic anemia in the setting oh H/H 6.0/20.2 treated with blood transfusion of a total of 4 units of packed red blood cells, GI consult. Electronically signed by: Rajinder Quevedo MD 02/07/2018 2:56 PM
[2018-02-07 15:45] VITALS: BP 131/82; PULSE 82; RESP 20; TEMP 97.9; O2SAT 100
[2018-02-07 19:48] VITALS: BP 165/94; PULSE 73; RESP 20; TEMP 97.8; O2SAT 100
[2018-02-08 00:27] VITALS: BP 168/91; PULSE 81; RESP 20; TEMP 98.6; O2SAT 100
[2018-02-08 04:34] VITALS: BP 165/95; PULSE 72; RESP 20; TEMP 98.8; O2SAT 99
[2018-02-08] MEDS ORDERED: ACETAMINOPHEN 325 MG TAB PO ONE (04:45)
[2018-02-08] MEDS: hydrALAZINE HCL 100 MG TAB PO SCH ×2 (06:08→13:22)
[2018-02-08] MEDS: PANTOPRAZOLE SODIUM 40 MG VIAL IV PUSH SCH (07:32)
[2018-02-08] MEDS: CARVEDILOL 12.5 MG TAB PO SCH (07:32)
[2018-02-08 08:00] VITALS: BP 149/89; PULSE 83; RESP 18; TEMP 99.6; O2SAT 100
[2018-02-08] MEDS ORDERED: SINCALIDE 5 MCG/5 ML VIAL IV ONE (11:53)
[2018-02-08 12:00] VITALS: BP 174/105; PULSE 85; RESP 16; TEMP 98.2; O2SAT 100
--- NOTE | 2018-02-08 13:47 | RADRPT ---
EXAM DATE: 02/08/2018 12:11 PM EDT AGE/SEX: 42 years / Male INDICATIONS: Abdomen pain. CLINICAL DATA: This is the patient's initial encounter. Patient reports that signs and symptoms have been present for 1 day and indicates a pain score of 0/10. MEDICAL/SURGICAL HISTORY: Hypertension. ETOH abuse. . Right Hand. COMPARISON: No prior exams available for comparison. DOSE: 4.2 mCi Tc-99m mebrofenin i.v. Medication: 1.5 mcg Cholecystokinin IV No symptomatic response Cholecystokinin was administered by slow infusion over 8 minutes beginning at 75 mins min utes. TECHNIQUE: Following the intravenous administration of radiotracer, dynamic sequential images were pe rformed with continuous acquisition. Time-activity curves were generated. FINDINGS: Hepatic Kinetics: There is prompt uptake of radiotracer in the liver. No focal defects are seen. Ther e is normal rate of washout from the hepatic parenchyma. Biliary Clearance: Activity is first seen in the extrahepatic biliary system at 15 minutes. There is normal excretion into the small bowel. Gallbladder: Activity is first seen in the gallbladder at 15 minutes. Post-CCK: After CCK administration, there is some emptying of the gallbladder with a 35% ejection fra ction. Common bile duct kinetics are normal and there is no evidence of biliary obstruction. No symp tomatic response after cholecystokinin infusion. Biliary-Enteric Reflux: None observed. CONCLUSION: 1. No cystic duct obstruction to suggest acute cholecystitis. Diminished gallbladder ejection fracti on could represent some biliary dyskinesia. Electronically signed by: Wilfredo Eason MD 02/08/2018 1:45 PM EDT
[2018-02-08 13:49] LABS: HEMATOCRIT 32.5 % (39.0-51.0); HEMOGLOBIN 10.6 GM/DL (13.0-17.0); MEAN CORPUSCULAR HEMOGLOBIN 24.2 PG (27.0-34.0); MEAN CORPUSCULAR HGB CONC 32.6 % (32.0-36.0); MEAN PLATELET VOLUME 8.4 FL (7.0-11.0); PLATELET COUNT 121 TH/MM3 (150-450); RED BLOOD COUNT 4.39 MIL/MM3 (4.50-5.90); RED CELL DISTRIBUTION WIDTH 21.9 % (11.6-17.2); WHITE BLOOD COUNT 7.9 TH/MM3 (4.0-11.0)
[2018-02-08] MEDS ORDERED: CARV12.5 PO (13:50)
[2018-02-08] MEDS ORDERED: HYDR-3801 PO (13:50)
[2018-02-08] MEDS ORDERED: PANT40TA3 PO (13:50)
--- NOTE | 2018-02-08 13:57 | HHI.PR ---
Subjective Remarks Follow-up symptomatic anemia/labile benign hypertension February 08, 2018-patient seen and examined; HIDA scan was performed this morning, patient denies any abdominal pain. H&H pending. Case discussed with GI. Objective Vitals Vital Signs Date Time Temp Pulse Resp B/P (MAP) Pulse Ox O2 Delivery O2 Flow Rate FiO2 02/08/18 12:00 98.2 85 16 174/105 (128) 100 02/08/18 08:00 99.6 83 18 149/89 (109) 100 02/08/18 04:34 98.8 72 20 165/95 (118) 99 02/08/18 00:27 98.6 81 20 168/91 (116) 100 02/07/18 19:48 97.8 73 20 165/94 (117) 100 02/07/18 15:45 97.9 82 20 131/82 (98) 100 I/O 02/07/18 02/07/18 02/07/18 02/08/18 02/08/18 02/08/18 07:00 15:00 23:00 07:00 15:00 23:00 Intake Total 410 ml 480 ml Balance 410 ml 480 ml Intake Oral 480 ml Packed Cells 400 ml Blood Product IV Normal Saline Flush 10 ml # Voids 1 4 Result Diagram: 02/07/18 0745 02/07/18 0745 Imaging Last Impressions Hepatobiliary Scan Nuclear Medicine 02/08/18 0000 Impressions: CONCLUSION: 1. No cystic duct obstruction to suggest acute cholecystitis. Diminished gallb ladder ejection fraction could represent some biliary dyskinesia. Small Bowel X-Ray 02/07/18 0600 Signed Impressions: CONCLUSION: Negative for obstruction. Subtle abnormalities cannot be excluded with Gastrografin. Abdomen/Pelvis CT 02/05/18 0000 Signed Impressions: CONCLUSION: 1. Nonspecific fluid distention of the colon. 2. Polycystic kidneys. 3. Hepatic steatosis. 4. Gallstones. Objective Remarks GENERAL: NAD SKIN: Warm and dry. HEAD: Normocephalic. EYES: No scleral icterus. No injection or drainage. NECK: Supple, trachea midline. No JVD or lymphadenopathy. CARDIOVASCULAR: Regular rate and rhythm without murmurs, gallops, or rubs. RESPIRATORY: Breath sounds equal bilaterally. No accessory muscle use. GASTROINTESTINAL: Abdomen soft, non-tender, nondistended. MUSCULOSKELETAL: No cyanosis, or edema. BACK: Nontender without obvious deformity. No CVA tenderness. Procedures Status post EGD which showed esophagitis, biopsies performed. Small hiatal hernia. Status post colonoscopy which showed trace amount of stool therefore limited exam. A sessile polyp ranging between 3-5 mm in size found in the sigmoid colon. Polypectomy was performed with cold forceps. Moderate sized internal hemorrhoids. A/P Problem List: (1) Symptomatic anemia ICD Code: D64.9 - Anemia, unspecified Status: Acute (2) Generalized weakness ICD Code: R53.1 - Weakness Status: Acute (3) Hypertension ICD Code: I10 - Essential (primary) hypertension Status: Chronic (4) Alcohol intoxication ICD Code: F10.929 - Alcohol use, unspecified with intoxication, unspecified (5) Transaminitis ICD Code: R74.0 - Nonspecific elevation of levels of transaminase and lactic acid dehydrogenase [LDH] Status: Acute (6) Elevated lipase ICD Code: R74.8 - Abnormal levels of other serum enzymes Status: Acute (7) Polycystic kidney disease ICD Code: Q61.3 - Polycystic kidney, unspecified Status: Acute (8) Hepatic steatosis ICD Code: K76.0 - Fatty (change of) liver, not elsewhere classified (9) Cholelithiasis ICD Code: K80.20 - Calculus of gallbladder without cholecystitis without obstruction Status: Acute Assessment and Plan 42-year-old man with Symptomatic anemia Patient transfused total of 4 units packed red blood cells since admission Underwent panendoscopy Appreciate input from GI and patient will follow outpatient for capsule endoscopy H&H currently stable Continue PPI Labile benign hypertension Continue hydralazine 100 mg p.o. every 8 hour and Coreg 12.5 mg p.o. twice daily Cholelithiasis HIDA scan performed today and no cystic duct obstruction to suggest acute cholecystitis Transaminitis Secondary to alcohol abuse Patient advised alcohol cessation Hepatic steatosis Again patient advised alcohol cessation Polycystic kidney disease Renal function stable Follow-up as an outpatient. Problem Qualifiers (1) Hypertension: Qualified Codes: I10 - Essential (primary) hypertension (2) Alcohol intoxication: Qualified Codes: F10.920 - Alcohol use, unspecified with intoxication, uncomplicated (3) Cholelithiasis: Qualified Codes: K80.20 - Calculus of gallbladder without cholecystitis without obstruction Lan Vieyra MD Feb 08, 2018 13:57
--- NOTE | 2018-02-08 13:58 | HHI.DS ---
Discharge Summary Admission Date Feb 05, 2018 at 09:45 Discharge Date: Feb 08, 2018 Admitting Diagnosis (1) Symptomatic anemia ICD Code: D64.9 - Anemia, unspecified Status: Acute (2) Generalized weakness ICD Code: R53.1 - Weakness Status: Acute (3) Hypertension ICD Code: I10 - Essential (primary) hypertension Status: Chronic (4) Alcohol intoxication ICD Code: F10.929 - Alcohol use, unspecified with intoxication, unspecified (5) Transaminitis ICD Code: R74.0 - Nonspecific elevation of levels of transaminase and lactic acid dehydrogenase [LDH] Status: Acute (6) Elevated lipase ICD Code: R74.8 - Abnormal levels of other serum enzymes Status: Acute (7) Polycystic kidney disease ICD Code: Q61.3 - Polycystic kidney, unspecified Status: Acute (8) Hepatic steatosis ICD Code: K76.0 - Fatty (change of) liver, not elsewhere classified (9) Cholelithiasis ICD Code: K80.20 - Calculus of gallbladder without cholecystitis without obstruction Status: Acute Procedures Status post EGD which showed esophagitis, biopsies performed. Small hiatal hernia. Status post colonoscopy which showed trace amount of stool therefore limited exam. A sessile polyp ranging between 3-5 mm in size found in the sigmoid colon. Polypectomy was performed with cold forceps. Moderate sized internal hemorrhoids. Brief History - From Admission Patient is a 42-year-old male with known history of hypertension, gastritis/ GERD who presented to the ER because of severe anemia. Patient states having increasing generalized weakness for the past 6-7 months associated with dysphagia poor p.o. appetite states she has been he has been vomiting almost on an every day basis dry heaves of previously ingested food,. States his weight loss is down to 2 2266 months. States diarrhea for the past 2 weeks but this he states has been going on for years now. And very vaguely states that the stools are noted to be black but states he has been for the same for the past 2 years. He was seen by a primary care physician 2 weeks ago for this and was prescribed some antibiotics which sounds like ciprofloxacin twice a day. Otherwise patient denies any fever or chills denies any cough. Patient was sent in here by [facility] primary care physician because of hemoglobin of 5. Patient admitted for further evaluation and management. On further history patient states he was followed by [facility] past and had a colonoscopy and EGD done in the past. Sounds like it was Dr. Feliz 2. He states compliance with Protonix and Coreg.. Patient denies any alcohol use, denies any NSAIDs use. States he still admits to smoking half pack per day and drinks 4 beers a day and that is it. CBC/BMP: 02/07/18 0745 02/07/18 0745 Significant Findings Laboratory Tests Test 02/06/18 06:12 02/06/18 15:15 02/07/18 07:45 02/08/18 13:21 Red Blood Count 3.19 MIL/MM3 (4.50-5.90) 3.68 MIL/MM3 (4.50-5.90) 4.18 MIL/MM3 (4.50-5.90) 4.39 MIL/MM3 (4.50-5.90) Hemoglobin 7.2 GM/DL (13.0-17.0) 8.2 GM/DL (13.0-17.0) 9.9 GM/DL (13.0-17.0) 10.6 GM/DL (13.0-17.0) Hematocrit 23.0 % (39.0-51.0) 26.4 % (39.0-51.0) 30.9 % (39.0-51.0) 32.5 % (39.0-51.0) Mean Corpuscular Volume 72.0 FL (80.0-100.0) 71.7 FL (80.0-100.0) 74.0 FL (80.0-100.0) 74.0 FL (80.0-100.0) Mean Corpuscular Hemoglobin 22.5 PG (27.0-34.0) 22.4 PG (27.0-34.0) 23.7 PG (27.0-34.0) 24.2 PG (27.0-34.0) Mean Corpuscular Hemoglobin Concent 31.3 % (32.0-36.0) 31.3 % (32.0-36.0) Red Cell Distribution Width 20.5 % (11.6-17.2) 20.5 % (11.6-17.2) 20.8 % (11.6-17.2) 21.9 % (11.6-17.2) Platelet Count 75 TH/MM3 (150-450) 94 TH/MM3 (150-450) 91 TH/MM3 (150-450) 121 TH/MM3 (150-450) Monocytes (%) (Auto) 10.4 % (0.0-8.0) 9.4 % (0.0-8.0) Platelet Estimate LOW (NORMAL) LOW (NORMAL) Tear Drop Cells 1+ (NORMAL) 1+ (NORMAL) Blood Urea Nitrogen 5 MG/DL (7-18) Albumin 3.1 GM/DL (3.4-5.0) 3.3 GM/DL (3.4-5.0) Alkaline Phosphatase 148 U/L (45-117) 141 U/L (45-117) Aspartate Amino Transf (AST/SGOT) 87 U/L (15-37) 65 U/L (15-37) Random Glucose 73 MG/DL (74-106) Potassium Level 3.3 MEQ/L (3.5-5.1) Imaging Last Impressions Hepatobiliary Scan Nuclear Medicine 02/08/18 0000 Impressions: CONCLUSION: 1. No cystic duct obstruction to suggest acute cholecystitis. Diminished gallb ladder ejection fraction could represent some biliary dyskinesia. Small Bowel X-Ray 02/07/18 0600 Signed Impressions: CONCLUSION: Negative for obstruction. Subtle abnormalities cannot be excluded with Gastrografin. Abdomen/Pelvis CT 02/05/18 0000 Signed Impressions: CONCLUSION: 1. Nonspecific fluid distention of the colon. 2. Polycystic kidneys. 3. Hepatic steatosis. 4. Gallstones. PE at Discharge GENERAL: NAD SKIN: Warm and dry. HEAD: Normocephalic. EYES: No scleral icterus. No injection or drainage. NECK: Supple, trachea midline. No JVD or lymphadenopathy. CARDIOVASCULAR: Regular rate and rhythm without murmurs, gallops, or rubs. RESPIRATORY: Breath sounds equal bilaterally. No accessory muscle use. GASTROINTESTINAL: Abdomen soft, non-tender, nondistended. MUSCULOSKELETAL: No cyanosis, or edema. BACK: Nontender without obvious deformity. No CVA tenderness. Hospital Course While in hospital, patient was treated for Symptomatic anemia Patient transfused total of 4 units packed red blood cells since admission Underwent panendoscopy Appreciate input from GI and patient will follow outpatient for capsule endoscopy H&H currently stable Continue PPI Labile benign hypertension Continue hydralazine 100 mg p.o. every 8 hour and Coreg 12.5 mg p.o. twice daily Cholelithiasis HIDA scan performed today and no cystic duct obstruction to suggest acute cholecystitis Transaminitis Secondary to alcohol abuse Patient advised alcohol cessation Hepatic steatosis Again patient advised alcohol cessation Polycystic kidney disease Renal function stable Follow-up as an outpatient. Pt Condition on Discharge: Good Discharge Disposition: Discharge Home Discharge Time: <= 30 minutes Discharge Instructions DIET: Follow Instructions for: Heart Healthy Diet Activities you can perform: Regular-No Restrictions Follow up Referrals: Gastroenterology - 3-5 Days PCP Follow-up - 1 Week New Medications: Carvedilol (Coreg) 12.5 Mg Tab 12.5 MG PO BID for Blood Pressure Management, #60 TAB 3 Refills Hydralazine (Hydralazine) 100 Mg Tab 100 MG PO Q8HR for Blood Pressure Management, #90 TAB 3 Refills Take with meals Continued Medications: Pantoprazole (Pantoprazole) 40 Mg Tab 40 MG PO DAILY for Reflux, #30 TAB 3 Refills (This prescription has been renewed ) Discontinued Medications: Carvedilol (Carvedilol) 12.5 Mg Tab 12.5 MG PO BID, #60 TAB 0 Refills Lan Vieyra MD Feb 08, 2018 13:58
[2018-02-08 14:14] LABS: ALBUMIN 3.6 GM/DL (3.4-5.0); ALT (GPT) 58 U/L (12-78); AST (GOT) 71 U/L (15-37); BICARBONATE 27.7 MEQ/L (21.0-32.0); BLOOD UREA NITROGEN 7 MG/DL (7-18); CALCIUM 9.1 MG/DL (8.5-10.1); CHLORIDE 104 MEQ/L (98-107); CREATININE 1.05 MG/DL (0.60-1.30); GLOMERULAR FILTRATION RATE 93 ML/MIN (>89); GLUCOSE,RANDOM 82 MG/DL (74-106); SODIUM (NA) 141 MEQ/L (136-145)
[2018-02-08 14:17] LABS: ALKALINE PHOSPHATASE 153 U/L (45-117); TOTAL BILIRUBIN ADULT 0.8 MG/DL (0.2-1.0); TOTAL PROTEIN 8.4 GM/DL (6.4-8.2)
== END 2018-02-08 15:05 | disposition home or self-care (01) | DRG 812 ==
LOC: NEPC 08:28 → NEDA 09:45 → N05B 14:26
PROVIDERS: ADMIT Hospitalist; ATTEND Hospitalist
PROC: 30233N1 Transfusion of Nonautologous Red Blood Cells into Peripheral Vein, Percutaneous Approach (ICD-10-PCS; 2018-02-05)
PROC: 0DB58ZX Excision of Esophagus, Via Natural or Artificial Opening Endoscopic, Diagnostic (ICD-10-PCS; principal; 2018-02-06 12:30)
PROC: 0DBN8ZZ Excision of Sigmoid Colon, Via Natural or Artificial Opening Endoscopic (ICD-10-PCS; 2018-02-06 12:30)
DX: D62 Acute posthemorrhagic anemia (principal); K92.0 Hematemesis; Q61.3 Polycystic kidney, unspecified; K52.9 Noninfective gastroenteritis and colitis, unspecified; D50.9 Iron deficiency anemia, unspecified; I10 Essential (primary) hypertension; E78.00 Pure hypercholesterolemia, unspecified; R06.00 Dyspnea, unspecified; R53.1 Weakness; K22.2 Esophageal obstruction; F10.129 Alcohol abuse with intoxication, unspecified; R74.0 Nonspecific elevation of levels of transaminase and lactic acid dehydrogenase [LDH]; K80.20 Calculus of gallbladder without cholecystitis without obstruction; K76.0 Fatty (change of) liver, not elsewhere classified; K63.5 Polyp of colon; K21.0 Gastro-esophageal reflux disease with esophagitis; K44.9 Diaphragmatic hernia without obstruction or gangrene; F41.9 Anxiety disorder, unspecified; K64.8 Other hemorrhoids; R63.4 Abnormal weight loss; F17.210 Nicotine dependence, cigarettes, uncomplicated; Y90.6 Blood alcohol level of 120-199 mg/100 ml; Z79.899 Other long term (current) drug therapy
CPT/HCPCS: 36430; 74177; 74250; 78227; 80053; 80074; 80307; 83540; 83550; 83615; 83690; 83735; 84100; 85007; 85025; 85027; 85044; 85610; 85730; 86077; 86850; 86870; 86900; 86901; 86902; 86920; 86922; 88305; 88312; 96361; 96374; A9537; C9113; J1940; J2805; J7030; J7050; P9016; Q9963; Q9967

== ENCOUNTER 2018-03-19 06:02 | Inpatient (IN) ==
[2018-03-19] MEDS ORDERED: Sod Chloride 0.9% Inj 1,000 ML IV.SIG ONE (07:24)
[2018-03-19] MEDS ORDERED: Pantoprazole Inj 40 MG Vial IV.PUSH ONE (07:25)
[2018-03-19] MEDS ORDERED: Carvedilol 12.5 MG Tablet PO ONE ×2 (07:26→16:00)
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
[2018-03-19 08:06] LABS: Baso # (Auto) 0.1 th/mm3 (0.0-0.2); Baso % (Auto) 1.5 % (0.0-2.0); Eos # (Auto) 0.2 th/mm3 (0.0-0.4); Eos % (Auto) 3.4 % (0.0-4.0); Hematocrit 30.5 % (39.0-51.0); Hemoglobin 9.7 gm/dL (13.0-17.0); Lymph # (Auto) 1.5 th/mm3 (1.0-4.8); Lymph % (Auto) 34.9 % (9.0-44.0); Mean Corpuscular HGB Conc 31.9 % (32.0-36.0); Mean Corpuscular Hemoglobin 24.4 pg (27.0-34.0); Mean Corpuscular Volume 76.5 fL (80.0-100.0); Mean Platelet Volume 7.4 fL (7.0-11.0); Mono # (Auto) 0.3 th/mm3 (0.0-0.9); Neut # (Auto) 2.4 th/mm3 (1.8-7.7); Neut % (Auto) 54.2 % (16.0-70.0); Platelet Count 202 th/mm3 (150-450); Red Blood Count 3.99 mil/mm3 (4.50-5.90); Red Cell Distribution Width 27.4 % (11.6-17.2); White Blood Count 4.4 th/mm3 (4.0-11.0)
[2018-03-19 08:16] LABS: Activated Partial Thrombo Time 25.6 sec (24.3-30.1); INR 1.2 Ratio; Prothrombin Time 11.9 sec (9.8-11.6)
[2018-03-19 08:24] LABS: Alanine Aminotransferase 106 U/L (12-78); Albumin 3.6 g/dL (3.4-5.0); Anion Gap 12 meq/L (5-15); Aspartate Aminotransferase 230 U/L (15-37); Blood Urea Nitrogen 5 mg/dL (7-18); Calcium 8.2 mg/dL (8.5-10.1); Carbon Dioxide 20.8 meq/L (21.0-32.0); Chloride 109 meq/L (98-107); Glomerular Filtration Rate Greater Than 89 mL/min (>89); Glucose,Random 85 mg/dL (74-106); Lipase 376 U/L (73-393); Potassium 3.6 meq/L (3.5-5.1); Sodium 142 meq/L (136-145)
[2018-03-19 08:29] LABS: Alkaline Phosphatase 202 U/L (45-117); Creatine Kinase 438 U/L (39-308); Total Protein 8.2 g/dL (6.4-8.2)
[2018-03-19 08:41] LABS: CKMB Percent 0.6 % (0.0-4.0); Creatine Kinase MB 2.7 ng/mL (0.5-3.6)
[2018-03-19 08:53] LABS: Dimorphic RBC Present
[2018-03-19 08:54] LABS: Platelet Estimate Normal (Normal); Platelet Morphology Normal (Normal)
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
[2018-03-19] MEDS ORDERED: Haloperidol Inj 5 MG/ML Ampul IV.PUSH PRN (11:17)
[2018-03-19] MEDS ORDERED: LORazepam 1 MG Tablet PO PRN (11:17)
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
[2018-03-19 12:59] LABS: Hematocrit 32.2 % (39.0-51.0); Hemoglobin 10.3 gm/dL (13.0-17.0)
[2018-03-19] MEDS ORDERED: Succinylcholine Inj 200 MG/10 ML Vial IV.PUSH ONE (14:59)
[2018-03-19] MEDS ORDERED: Lidocaine PF 1% Inj 5 ML Syringe INFILTRATN ONE (14:59)
[2018-03-19] MEDS: Carvedilol 12.5 MG Tablet PO SCH ×2 (15:47→21:55)
[2018-03-19] MEDS ORDERED: *Labetalol HCl Inj 100 MG/20 ML Vial PERIprocedural Use ONLY IV.PUSH ONE (16:26)
[2018-03-19] MEDS: Labetalol HCl Inj 100 MG/20 ML Vial IV.PUSH PRN ×3 (16:35→16:55)
--- NOTE | 2018-03-19 18:35 | ECG ---
Date Performed: 03/19/2018 Time Performed: 06:15:32 PTAGE: 42 years EKG: Sinus rhythm POSSIBLE LEFT ATRIAL ENLARGEMENT POSSIBLE LEFT VENTRICULAR HYPERTROPHY ABNORMAL ECG Since the PREVIOUS TRACING , no significant change noted DOCTOR: Richard Raman Interpretating Date/Time 03/19/2018 18:33:25
[2018-03-19] MEDS ORDERED: hydrALAZINE 50 MG Tablet PO PRN (19:10)
[2018-03-19 20:59] LABS: Hematocrit 30.6 % (39.0-51.0)
[2018-03-19] MEDS: Pantoprazole Inj 40 MG Vial IV.PUSH SCH (21:55)
[2018-03-20] MEDS: Morphine Inj 4 MG/ML Vial IV.PUSH PRN ×2 (00:24→04:40)
[2018-03-20 02:57] LABS: Hematocrit 29.8 % (39.0-51.0); Hemoglobin 9.6 gm/dL (13.0-17.0); Mean Corpuscular HGB Conc 32.1 % (32.0-36.0); Mean Corpuscular Hemoglobin 24.3 pg (27.0-34.0); Mean Corpuscular Volume 75.7 fL (80.0-100.0); Mean Platelet Volume 7.3 fL (7.0-11.0); Platelet Count 194 th/mm3 (150-450); Red Blood Count 3.94 mil/mm3 (4.50-5.90); Red Cell Distribution Width 27.4 % (11.6-17.2); White Blood Count 5.7 th/mm3 (4.0-11.0)
[2018-03-20 03:36] LABS: Albumin 3.8 g/dL (3.4-5.0); Calcium 9.1 mg/dL (8.5-10.1); Carbon Dioxide 24.1 meq/L (21.0-32.0); Potassium 3.7 meq/L (3.5-5.1); Total Protein 8.1 g/dL (6.4-8.2)
[2018-03-20] MEDS: Carvedilol 12.5 MG Tablet PO SCH ×2 (08:20→21:00)
[2018-03-20] MEDS: Pantoprazole Inj 40 MG Vial IV.PUSH SCH (08:20)
--- NOTE | 2018-03-20 11:47 | P.PNIM ---
Subjective Interval history: Upward trend in LFTs. Patient has improvement in pancreatic enzymes and improvement in clinical symptoms. Physical Exam Vital signs: Vital Signs 03/19/18 15:00 03/19/18 15:15 03/19/18 15:30 Temperature 98.1 F Pulse Rate 97 H 87 83 Respiratory Rate 22 14 14 Blood Pressure 157/98 H 154/107 H 157/102 H Pulse Oximetry 100 98 96 03/19/18 15:45 03/19/18 16:00 03/19/18 16:15 Temperature Pulse Rate 82 77 87 Respiratory Rate 14 14 18 Blood Pressure 170/111 H 163/107 H 168/112 H Pulse Oximetry 97 97 97 03/19/18 16:30 03/19/18 16:35 03/19/18 16:45 Temperature Pulse Rate 83 80 81 Respiratory Rate 13 16 16 Blood Pressure 164/105 H 166/111 H 166/112 H Pulse Oximetry 97 97 97 03/19/18 17:00 03/19/18 18:20 03/20/18 04:53 Temperature 98.7 F 98.6 F 98.6 F Pulse Rate 81 91 H 79 Respiratory Rate 16 20 18 Blood Pressure 159/105 H 171/108 H 171/101 H Pulse Oximetry 98 100 98 03/20/18 08:00 Temperature 98.5 F Pulse Rate 78 Respiratory Rate 18 Blood Pressure 157/104 H Pulse Oximetry 95 Intake & Output 03/19/18 03/20/18 03/20/18 18:59 06:59 18:59 Intake Total 50 / 50 Output Total 250 / 250 Balance -200 / -200 Weight 76.36 kg Intake: Oral 50 / 50 Output: Urine 250 / 250 Other: # Voids 1 1 Weight On Admission 76.204 kg Narrative: GENERAL: NAD, A&Ox3 HEAD: Normocephalic. NECK: Supple, trachea midline. No lymphadenopathy. EYES: No scleral icterus. No injection or drainage. CARDIOVASCULAR: Regular rate and rhythm without murmurs, gallops, or rubs. RESPIRATORY: Breath sounds equal bilaterally. No accessory muscle use. GASTROINTESTINAL: Abdomen soft, non-tender, nondistended. MUSCULOSKELETAL: No cyanosis, or edema. SKIN: Warm and dry. NEURO: No focal neurological deficits. Results - Labs CBC & Chem 7: 03/20/18 02:40 03/20/18 02:40 Laboratory Results - last 24 hr 03/19/18 03/19/18 03/20/18 12:20 19:21 02:40 WBC 5.7 RBC 3.94 L Hgb 10.3 L 10.0 L 9.6 L Hct 32.2 L 30.6 L 29.8 L MCV 75.7 L MCH 24.3 L MCHC 32.1 RDW 27.4 H Plt Count 194 MPV 7.3 Sodium Potassium Chloride Carbon Dioxide Anion Gap BUN Creatinine Estimated GFR Random Glucose Calcium Total Bilirubin Direct Bilirubin Indirect Bilirubin AST ALT Alkaline Phosphatase Total Protein Albumin 03/20/18 02:40 WBC RBC Hgb Hct MCV MCH MCHC RDW Plt Count MPV Sodium 137 Potassium 3.7 Chloride 103 Carbon Dioxide 24.1 Anion Gap 10 BUN 5 L Creatinine 1.11 Estimated GFR 87 L Random Glucose 128 H Calcium 9.1 D Total Bilirubin 1.4 H Direct Bilirubin 0.7 H Indirect Bilirubin 0.7 AST 405 H ALT 124 H Alkaline Phosphatase 229 H Total Protein 8.1 Albumin 3.8 Assessment and Plan - Assessment (1) Chest pain Code(s): R07.9 - Chest pain, unspecified Status: Acute (2) GI (gastrointestinal bleed) Code(s): K92.2 - Gastrointestinal hemorrhage, unspecified Status: Acute (3) Pancreatitis Code(s): K85.90 - Acute pancreatitis without necrosis or infection, unspecified Status: Acute - Plan 42-year-old male alcoholic admitted with hematemesis, pancreatitis, and transaminitis Transaminitis This is worsening despite lack of exposure of alcohol Obtain HIDA scan to evaluate for obstruction Pancreatitis Improving Follow lipase hematemesis/upper GI bleed Acute blood loss anemia H&H as showing stability Continue Protonix Hypertension Continue baseline treatment Follow blood pressures Adjust treatments as needed Continue Coreg As needed clonidine Alcohol dependence Cessation recommended [facility] protocol Chest pain Negative cardiac evaluation Etiology likely related to alcohol and GI bleed and hematemesis Polycystic kidney disease Follow renal function DVT prophylaxis SCDs (1) Chest pain Qualifiers: Chest pain type: unspecified Qualified Code(s): R07.9 - Chest pain, unspecified (2) GI (gastrointestinal bleed) Qualifiers: GI bleed type/associated pathology: unspecified gastrointestinal hemorrhage type Qualified Code(s): K92.2 - Gastrointestinal hemorrhage, unspecified (3) Pancreatitis Qualifiers: Chronicity: acute Pancreatitis type: alcohol induced Acute pancreatitis complication: unspecified Qualified Code(s): K85.20 - Alcohol induced acute pancreatitis without necrosis or infection
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
[2018-03-20] MEDS: Sod Chloride 0.9% Inj 1,000 ML IV.CONT SCH (15:29)
[2018-03-20] MEDS ORDERED: Senna/Docusate Sodium 8.6/50 MG Tablet PO PRN (21:00)
[2018-03-21] MEDS: Sod Chloride 0.9% Inj 1,000 ML IV.CONT SCH ×2 (05:59→16:21)
[2018-03-21] MEDS: Carvedilol 12.5 MG Tablet PO SCH ×2 (08:29→20:42)
[2018-03-21 08:46] LABS: Baso % (Auto) 0.3 % (0.0-2.0); Eos # (Auto) 0.2 th/mm3 (0.0-0.4); Eos % (Auto) 2.6 % (0.0-4.0); Hematocrit 28.8 % (39.0-51.0); Hemoglobin 9.4 gm/dL (13.0-17.0); Lymph # (Auto) 1.1 th/mm3 (1.0-4.8); Lymph % (Auto) 17.3 % (9.0-44.0); Mean Corpuscular HGB Conc 32.6 % (32.0-36.0); Mean Corpuscular Volume 76.7 fL (80.0-100.0); Mean Platelet Volume 8.3 fL (7.0-11.0); Mono # (Auto) 0.4 th/mm3 (0.0-0.9); Mono % (Auto) 5.8 % (0.0-8.0); Neut # (Auto) 4.7 th/mm3 (1.8-7.7); Platelet Count 158 th/mm3 (150-450); Red Blood Count 3.76 mil/mm3 (4.50-5.90); Red Cell Distribution Width 27.7 % (11.6-17.2); White Blood Count 6.4 th/mm3 (4.0-11.0)
[2018-03-21 09:04] LABS: Albumin 3.2 g/dL (3.4-5.0); Anion Gap 9 meq/L (5-15); Blood Urea Nitrogen 3 mg/dL (7-18); Calcium 8.8 mg/dL (8.5-10.1); Carbon Dioxide 24.8 meq/L (21.0-32.0); Chloride 101 meq/L (98-107); Glomerular Filtration Rate Greater Than 89 mL/min (>89); Glucose,Random 75 mg/dL (74-106); Potassium 3.4 meq/L (3.5-5.1); Sodium 135 meq/L (136-145)
[2018-03-21 09:06] LABS: Alanine Aminotransferase 121 U/L (12-78)
[2018-03-21 09:19] LABS: Dimorphic RBC Present
[2018-03-21 09:20] LABS: Platelet Estimate Normal (Normal); Platelet Morphology Normal (Normal)
[2018-03-21 09:38] LABS: Alkaline Phosphatase 218 U/L (45-117); Aspartate Aminotransferase 316 U/L (15-37); Lipase 2805 U/L (73-393); Total Protein 7.5 g/dL (6.4-8.2)
--- NOTE | 2018-03-21 10:06 | P.PNIM ---
Subjective Interval history: Patient had worsening again of his pancreatitis. As of yesterday he had had an upward trend in his LFTs but these are improved slightly today. HIDA scan pending to rule out obstructive etiology. Physical Exam Vital signs: Vital Signs 03/20/18 12:00 03/20/18 16:00 03/20/18 20:00 Temperature 98.7 F 99.1 F 98.8 F Pulse Rate 81 78 86 Respiratory Rate 16 16 18 Blood Pressure 125/73 140/92 H 144/101 H Pulse Oximetry 96 95 99 03/21/18 00:00 03/21/18 04:00 03/21/18 08:00 Temperature 98.9 F 98.7 F 98.5 F Pulse Rate 81 88 93 H Respiratory Rate 18 18 18 Blood Pressure 160/100 H 172/109 H 175/118 H Pulse Oximetry 100 99 95 Intake & Output 03/20/18 03/21/18 03/21/18 18:59 06:59 18:59 Intake Total 1000 / 1000 Balance 1000 / 1000 Weight 77.2 kg Intake: IV 1000 / 1000 NS Inj 1,000 ML @ 84 mls/hr IV. 1000 / 1000 CONT .[id number] [facility] Rx#:[id number] Other: # Voids 5 3 1 Date of Last Bowel Movement 03/20/18 # Bowel Movements 2 1 Narrative: GENERAL: NAD, A&Ox3 HEAD: Normocephalic. NECK: Supple, trachea midline. No lymphadenopathy. EYES: No scleral icterus. No injection or drainage. CARDIOVASCULAR: Regular rate and rhythm without murmurs, gallops, or rubs. RESPIRATORY: Breath sounds equal bilaterally. No accessory muscle use. GASTROINTESTINAL: Abdomen soft, non-tender, nondistended. MUSCULOSKELETAL: No cyanosis, or edema. SKIN: Warm and dry. NEURO: No focal neurological deficits. Results - Labs CBC & Chem 7: 03/21/18 07:04 03/21/18 07:04 Laboratory Results - last 24 hr 03/21/18 03/21/18 07:04 07:04 WBC 6.4 RBC 3.76 L Hgb 9.4 L Hct 28.8 L MCV 76.7 L MCH 25.0 L MCHC 32.6 RDW 27.7 H Plt Count 158 MPV 8.3 Prelim Diff (Auto) Slide review pending Neut % (Auto) 74.0 H Lymph % (Auto) 17.3 [place] % (Auto) 5.8 Eos % (Auto) 2.6 Baso % (Auto) 0.3 Neut # (Auto) 4.7 Lymph # (Auto) 1.1 [place] # (Auto) 0.4 Eos # (Auto) 0.2 Baso # (Auto) 0.0 WBC Differential . Diff Scan Auto diff confirmed Differential Comment . Platelet Estimate Normal Platelet Morphology Normal Dimorphic RBCs Present H Sodium 135 L Potassium 3.4 L Chloride 101 Carbon Dioxide 24.8 Anion Gap 9 BUN 3 L Creatinine 0.87 Estimated GFR Greater than 89 Random Glucose 75 Calcium 8.8 Total Bilirubin 2.5 H AST 316 H ALT 121 H Alkaline Phosphatase 218 H Total Protein 7.5 D Albumin 3.2 L D Lipase 2805 H Assessment and Plan - Assessment (1) Chest pain Code(s): R07.9 - Chest pain, unspecified Status: Acute (2) GI (gastrointestinal bleed) Code(s): K92.2 - Gastrointestinal hemorrhage, unspecified Status: Acute (3) Pancreatitis Code(s): K85.90 - Acute pancreatitis without necrosis or infection, unspecified Status: Acute - Plan 42-year-old male alcoholic admitted with hematemesis, pancreatitis, and transaminitis Following transaminitis. Following pancreatitis. HIDA scan being obtained today and report is pending. Continue following LFTs and lipase. Transaminitis This is worsening despite lack of exposure of alcohol Obtain HIDA scan to evaluate for obstruction Pancreatitis Improving Follow lipase hematemesis/upper GI bleed Acute blood loss anemia H&H as showing stability Continue Protonix Hypertension Continue baseline treatment Follow blood pressures Adjust treatments as needed Continue Coreg As needed clonidine Alcohol dependence Cessation recommended [facility] protocol Chest pain Negative cardiac evaluation Etiology likely related to alcohol and GI bleed and hematemesis Polycystic kidney disease Follow renal function DVT prophylaxis SCDs (1) Chest pain Qualifiers: Chest pain type: unspecified Qualified Code(s): R07.9 - Chest pain, unspecified (2) GI (gastrointestinal bleed) Qualifiers: GI bleed type/associated pathology: unspecified gastrointestinal hemorrhage type Qualified Code(s): K92.2 - Gastrointestinal hemorrhage, unspecified (3) Pancreatitis Qualifiers: Chronicity: acute Pancreatitis type: alcohol induced Acute pancreatitis complication: unspecified Qualified Code(s): K85.20 - Alcohol induced acute pancreatitis without necrosis or infection
[2018-03-21] MEDS ORDERED: Sincalide Inj 5 MCG Vial IV.PUSH ONE (10:15)
--- NOTE | 2018-03-21 10:46 | NM ---
EXAM DATE: 03/21/2018 10:34 AM EDT AGE/SEX: 42 years / Male INDICATIONS: Right upper quadrant pain for one day. Patient has known cholelithiasis and indistinctn ess in the region the head of the pancreas on CT. Severe hepatic steatosis was noted as well. CLINICAL DATA: This is the patient's initial encounter. Patient reports that signs and symptoms have been present for 1 day and indicates a pain score of 7/10. MEDICAL/SURGICAL HISTORY: Renal failure, chronic. Hypertension. None. COMPARISON: [facility] [place], [facility]ILI[facility]ITAT[facility] (HIDA), 02/08/2018. . No external comparison. DOSE: 4.2 mCi Tc-99m mebrofenin i.v. Medication: 1.52 mcg Cholecystokinin IV No symptomatic response Cholecystokinin was administered by slow infusion over 8 minutes beginning at 70 min. min utes. TECHNIQUE: Following the intravenous administration of radiotracer, dynamic sequential images were pe rformed with continuous acquisition. Time-activity curves were generated. FINDINGS: Hepatic Kinetics: There is prompt uptake of radiotracer in the liver. No focal defects are seen. Ther e is apparent delayed washout of activity from the hepatic parenchyma. Biliary Clearance: Activity is first seen in the extrahepatic biliary system at 20 minutes. There is normal excretion into the small bowel. Gallbladder: Activity is first seen in the gallbladder at 30 minutes. Post-CCK: After CCK administration, there is minimal gallbladder emptying with a less than a 10% ejec tion fraction. Common bile duct kinetics are normal and there is no evidence of biliary obstruction. No symptomatic response after cholecystokinin infusion. Biliary-Enteric Reflux: None observed. 1. Normal gallbladder visualization and no evidence of biliary obstruction. 2. Apparent delayed washout of activity from the hepatic parenchyma which could indicate hepatocellu lar disease. 3. Minimal gallbladder emptying after CCK administration which could indicate biliary dyskinesia. Electronically signed by: Octavio Galeano MD 03/21/2018 10:44 AM EDT
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
[2018-03-22] MEDS: Morphine Inj 4 MG/ML Vial IV.PUSH PRN ×2 (00:22→21:16)
[2018-03-22] MEDS: Sod Chloride 0.9% Inj 1,000 ML IV.CONT SCH ×2 (02:59→17:00)
[2018-03-22] MEDS: Carvedilol 12.5 MG Tablet PO SCH ×2 (08:18→21:09)
[2018-03-22 09:15] LABS: Baso % (Auto) 0.6 % (0.0-2.0); Eos # (Auto) 0.2 th/mm3 (0.0-0.4); Eos % (Auto) 3.8 % (0.0-4.0); Hematocrit 29.4 % (39.0-51.0); Hemoglobin 9.5 gm/dL (13.0-17.0); Lymph # (Auto) 1.4 th/mm3 (1.0-4.8); Lymph % (Auto) 22.1 % (9.0-44.0); Mean Corpuscular HGB Conc 32.3 % (32.0-36.0); Mean Corpuscular Hemoglobin 24.9 pg (27.0-34.0); Mean Corpuscular Volume 77.3 fL (80.0-100.0); Mean Platelet Volume 8.7 fL (7.0-11.0); Mono # (Auto) 0.5 th/mm3 (0.0-0.9); Mono % (Auto) 7.1 % (0.0-8.0); Neut # (Auto) 4.3 th/mm3 (1.8-7.7); Neut % (Auto) 66.4 % (16.0-70.0); Platelet Count 164 th/mm3 (150-450); Red Blood Count 3.81 mil/mm3 (4.50-5.90); Red Cell Distribution Width 28.6 % (11.6-17.2); White Blood Count 6.5 th/mm3 (4.0-11.0)
[2018-03-22 09:33] LABS: Albumin 3.4 g/dL (3.4-5.0); Anion Gap 10 meq/L (5-15); Aspartate Aminotransferase 197 U/L (15-37); Blood Urea Nitrogen 5 mg/dL (7-18); Calcium 8.7 mg/dL (8.5-10.1); Carbon Dioxide 26.5 meq/L (21.0-32.0); Chloride 98 meq/L (98-107); Glucose,Random 76 mg/dL (74-106); Potassium 3.2 meq/L (3.5-5.1); Sodium 134 meq/L (136-145)
[2018-03-22 09:34] LABS: Alanine Aminotransferase 106 U/L (12-78)
[2018-03-22 09:37] LABS: Alkaline Phosphatase 219 U/L (45-117); Lipase 2268 U/L (73-393)
[2018-03-22 09:56] LABS: Ovalocytes 1+
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
[2018-03-23 07:29] LABS: Albumin 3.4 g/dL (3.4-5.0)
[2018-03-23 07:32] LABS: Total Protein 7.9 g/dL (6.4-8.2)
[2018-03-23] MEDS: Carvedilol 12.5 MG Tablet PO SCH (09:05)
[2018-03-23] MEDS: Sod Chloride 0.9% Inj 1,000 ML IV.CONT SCH (09:05)
[2018-03-23 09:37] VITALS: RESP 16
[2018-03-23] MEDS ORDERED: hydroCHLOROthiazide 25 MG Tablet PO ONE (12:00)
[2018-03-23 12:50] VITALS: PULSE 71; TEMP 98.6; O2SAT 99
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
[2018-03-23 14:53] VITALS: BP 140/76
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
--- NOTE | 2018-04-28 15:34 | P.PCN ---
Date of procedure: 03/19/18 Procedure: 03/19/2018 THANK YOU FOR THE REFERRAL Indication; chest pain, nausea, vomiting Procedure Performed; upper endoscopy with biopsy After informing the patient about procedure and possible complications consent was signed. history and physical were updated. Patient was taken to the procedure room and placed in position. Time out was completed. Adequate sedation was performed by anesthesia provider. Upper Endoscopy, the scope was placed in the mouth advanced under video guide to the second portion of the duodenum, then the scope was withdrawal to the stomach and retro-flexion was performed, the scope was withdrawal to the esophagus then out of the mouth without any immediate complication Findings; Esophagus: Mild esophagitis, irregular Z line biopsy from the EG junction Stomach mild gastritis Duodenum normal Recommendations; 1- Supportive care 2- ok to transfer to recovery area then discharge per protocol 3-follow-up biopsy 4-full liquid diet advance as tolerated 5- EGD as needed 6-continue PPI
== END 2018-03-23 15:00 | disposition home or self-care (01) ==
LOC: NEPE 06:02 → NEDA 11:04 → HCIS 14:19 → N05 15:21
PROVIDERS: ADMIT Internal Medicine; ATTEND Internal Medicine
PROC: PANENDO (2018-03-19 14:34)

== ENCOUNTER 2018-04-13 18:00 | Inpatient (IN) ==
[2018-04-13] MEDS ORDERED: Pantoprazole Inj 40 MG Vial IV.PUSH ONE (18:23)
[2018-04-13] MEDS ORDERED: Sod Chloride 0.9% Inj 1,000 ML IV.CONT SCH (18:30)
--- NOTE | 2018-04-13 18:43 | ED ---
HPI General Chief complaint: GI Bleed Stated complaint: sob Time Seen by Provider: 04/13/18 18:12 Source: patient Mode of arrival: ambulatory Limitations: no limitations History of Present Illness HPI Narrative: The patient is a 42-year-old -Turkish male who presents to the emergency department for shortness of breath and GI bleed. The patient notes a several week history of increasing shortness of breath, worse over the last 2 days. The patient states he has had 2 episodes of vomiting with a small amount of bright red blood in the emesis. He also complains of black stools intermittently over the last several days. The patient does have a history of GI bleed in the past requiring blood transfusion. The patient does note her shortness of breath is worse with exertion, he denies any chest pain. He does complain of mild epigastric pain as well as bilateral lower abdominal pain. The patient states he has had an endoscopy and colonoscopy in the past, was scheduled to have a pill swallowing study for his GI bleeding. The patient was recently in the hospital for elevated blood pressure. Symptoms are moderate. MD complaint: blood streaked emesis and melena Onset (ago): day(s) Pain Consistency: intermittent Severity: moderate Exacerbating factors: bowel movement Context: history of GI bleed Associated symptoms: abdominal pain and shortness of breath Treatments Prior to Arrival: none Related Data Previous Rx's Medication Instructions Recorded carvedilol [Coreg] 25 mg PO BID #60 tab 03/22/18 folic acid 1 mg PO DAILY #30 tab 03/22/18 hydralazine 100 mg PO TID #90 tab 03/22/18 vnrwxgkgejeh-sgl-kwuh-FA-vit K 1 tab PO DAILY #30 tab 03/22/18 [Adults Multivitamin] ondansetron HCl [Zofran] 8 mg PO TID PRN #20 tab 03/22/18 pantoprazole 40 mg PO BID #60 tab 03/22/18 thiamine HCl (vitamin B1) 100 mg PO DAILY #30 tab 03/22/18 Allergies Allergy/AdvReac Type Severity Reaction Status Date / Time clonidine Allergy Severe SOB, Verified 03/19/18 07:12 Facial edema, Dizziness, Nausea lisinopril Allergy Severe Swelling Verified 03/19/18 07:12 nifedipine Allergy Intermediate Swelling Verified 03/19/18 07:12 Review of Systems ROS: all other systems reviewed are negative [facility] Medical History Medical History CKD (chronic kidney disease) (Acute) GI bleed (Acute) Hypertension (Acute) Wrist fracture (Acute) Surgical History Surgical History H/O exploratory laparotomy (Acute) Social History Social History Substance History: No History of Abuse Second Hand Smoke Exposure: Yes Smoking Status: Current every day smoker Tobacco Type: Cigarettes How Often Do You Have a Drink Containing Alcohol: 4 or more times a week Recent Out of Country Travel within the Last 8 Weeks: No Immunization History Tetanus Immunization: Unsure Hx Influenza Vaccine This Season: No Exam Narrative Exam Narrative: GENERAL: Awake, alert, pleasant 42-year-old male who appears his stated age and is in no acute respiratory distress. SKIN: Focused skin assessment warm/dry. HEAD: Atraumatic. Normocephalic. EYES: Pupils equal and round. Lower conjunctival pallor noted. ENT: No nasal bleeding or discharge. Slight black discoloration on the lateral aspect of the tongue bilaterally. NECK: Trachea midline. No JVD. CARDIOVASCULAR: Regular, tachycardic with a heart rate 100. RESPIRATORY: No accessory muscle use. Clear to auscultation. Breath sounds equal bilaterally. GASTROINTESTINAL: Abdomen soft, mild epigastric tenderness bilateral lower abdominal tenderness. No guarding or rigidity. Rectal: No gross blood. Guaiac negative. MUSCULOSKELETAL: No obvious deformities. No clubbing. No cyanosis. No edema. NEUROLOGICAL: Awake and alert. No obvious cranial nerve deficits. Motor grossly within normal limits. Normal speech. PSYCHIATRIC: Appropriate mood and affect; insight and judgment normal. Procedures Hemaprompt Stool Procedural Steps Taken: specimen placed in appropriate test area Hemaprompt Stool Result: negative Course Consultations Consultation #1: The patient's case including history, pertinent physical examination findings, and laboratory studies were discussed with Mel Cali. It was agreed that the patient would be admitted to the hospitalist service. Time: 19:54 Initial Documented Vital Signs Temperature 98.3 F 04/13/18 18:02 Pulse Rate 101 H 04/13/18 18:02 Respiratory Rate 20 04/13/18 18:02 Blood Pressure 104/76 04/13/18 18:02 Pulse Oximetry 99 04/13/18 18:02 Last Documented Vital Signs Temperature 98.3 F 04/13/18 18:02 Pulse Rate 96 H 04/13/18 18:05 Respiratory Rate 18 04/13/18 18:05 Blood Pressure 140/79 04/13/18 18:05 Pulse Oximetry 98 04/13/18 18:05 Sign Out Sign Out Data: Patient Sign Out occurred on 04/13/18 at 19:06. Patient's care was discussed, and care was transferred from Humble Becerra MD to Zoila Menjivar MD. Sign Out Comment: Patient presents with shortness of breath and melena with 2 episodes of bright red blood via emesis. Patient does have a history of alcohol use, previous GI bleed, previous transfusion, and has had previous endoscopy and colonoscopy. Follow-up CBC, chest x-ray, and coags. Disposition based on hemoglobin and laboratory evaluation. Last updated by Humble Becerra MD at 04/13/18 18:49 Post-Handoff Eval: During the course of the patient's emergency department visit, the patient's history, examination, and differential diagnosis were reviewed with the patient. The patient was placed on a monitoring specialist with oximetry and frequent blood pressure monitoring. The patient had IV access obtained and blood work sent for analysis. The patient's case was checked out to me by Dr. Becerra. Please see his history and physical. The patient's case was checked out to me at the conclusion of his shift. The patient was initially provided normal saline 1 25 mL/h, Protonix 40 mg IV. The patient's diagnostic evaluation is remarkable for a white count of 5.8, hemoglobin is 10.8 which is stable compared to prior levels, his last hemoglobin of record was done on March 22 and noted to be 9.5, PT 10.5, PTT 25.9 , chemistry is remarkable for troponin I that is less than 0.02, total protein is elevated at 8.6, lipase is elevated at 683, GFR is 56, creatinine is elevated at 1.64 consistent with an acute kidney injury in a patient with a last creatinine of 0.92., CO2 20.1, calcium 8.3, AST 77, alk phos 122, alcohol level is 339. The patient will be admitted to the hospital related to a GI bleed with reported hematemesis 2 prior to arrival. There is a concern that the patient' s hemoglobin will drop with hydration as the patient has acute kidney injury. The patient was given normal saline 1 L IV fluid bolus. The patient's results were discussed with the patient, including the plan of care. I explained that further testing and/ or monitoring is indicated based on the patient's history, examination, and/ or laboratory findings. Therefore, I recommended admission for additional evaluation. The patient expressed understanding and was agreeable with this plan. The patient was admitted to the hospital in guarded condition and sent to a bed under the care of [facility] service. Medical Decision Making MDM Narrative Medical decision making narrative: IV was established, labs are drawn and sent, and the patient was placed on cardiac telemetry monitoring and continuous pulse oximetry monitoring. Rectal exam was performed, guaiac negative. No gross blood. Chest x-ray was performed. EKG was ordered and interpreted. CBC and type and screen were sent to lab. The patient was administer Protonix 40 mg intravenously. The patient was signed out to the oncoming physician at 7 PM. Medical Screen Exam Complete: Yes Emergency Medical Condition: Yes Differential Diagnosis Differential Diagnosis: Differential diagnosis includes upper GI bleed, lower GI bleed, gastritis, duodenitis, esophageal varices, coagulopathy, alcohol abuse , symptomatic anemia, congestive heart failure, acute coronary syndrome, diverticulosis. Lab Data Result diagrams: 04/13/18 18:28 04/13/18 19:05 Lab Results 04/13/18 04/13/18 04/13/18 Range/Units 18:28 18:28 18:28 WBC 5.8 (4.0-11.0) th/mm3 RBC 3.81 L (4.50-5.90) mil/mm3 Hgb 10.8 L (13.0-17.0) gm/dL Hct 30.1 L (39.0-51.0) % MCV 79.1 L (80.0-100.0) fL MCH 28.3 (27.0-34.0) pg MCHC 35.8 (32.0-36.0) % RDW 26.0 H (11.6-17.2) % Plt Count 288 D (150-450) th/mm3 MPV 7.1 (7.0-11.0) fL Prelim Diff (Auto) Slide review pending Neut % (Auto) 47.5 (16.0-70.0) % Lymph % (Auto) 43.3 (9.0-44.0) % [facility] % (Auto) 7.1 (0.0-8.0) % Eos % (Auto) 1.0 (0.0-4.0) % Baso % (Auto) 1.1 (0.0-2.0) % Neut # (Auto) 2.7 (1.8-7.7) th/mm3 Lymph # (Auto) 2.5 (1.0-4.8) th/mm3 [facility] # (Auto) 0.4 (0.0-0.9) th/mm3 Eos # (Auto) 0.1 (0.0-0.4) th/mm3 Baso # (Auto) 0.1 (0.0-0.2) th/mm3 WBC Differential . Diff Scan Auto diff confirmed Differential Comment . PT 10.5 (9.8-11.6) sec INR 1.0 Ratio APTT 25.9 (24.3-30.1) sec Sodium (136-145) meq/L Potassium (3.5-5.1) meq/L Chloride (98-107) meq/L Carbon Dioxide (21.0-32.0) meq/L Anion Gap (5-15) meq/L BUN (7-18) mg/dL Creatinine (0.60-1.30) mg/dL Estimated GFR (>89) mL/min Random Glucose (74-106) mg/dL Calcium (8.5-10.1) mg/dL Magnesium (1.5-2.5) mg/dL Total Bilirubin (0.2-1.0) mg/dL AST (15-37) U/L ALT (12-78) U/L Alkaline Phosphatase (45-117) U/L Troponin I (0.02-0.05) ng/mL B-Natriuretic Peptide 4 (0-100) pg/mL Total Protein (6.4-8.2) g/dL Albumin (3.4-5.0) g/dL Lipase (73-393) U/L Serum Alcohol (0-5) mg/dL 04/13/18 Range/Units 19:05 WBC (4.0-11.0) th/mm3 RBC (4.50-5.90) mil/mm3 Hgb (13.0-17.0) gm/dL Hct (39.0-51.0) % MCV (80.0-100.0) fL MCH (27.0-34.0) pg MCHC (32.0-36.0) % RDW (11.6-17.2) % Plt Count (150-450) th/mm3 MPV (7.0-11.0) fL Prelim Diff (Auto) Neut % (Auto) (16.0-70.0) % Lymph % (Auto) (9.0-44.0) % [facility] % (Auto) (0.0-8.0) % Eos % (Auto) (0.0-4.0) % Baso % (Auto) (0.0-2.0) % Neut # (Auto) (1.8-7.7) th/mm3 Lymph # (Auto) (1.0-4.8) th/mm3 [facility] # (Auto) (0.0-0.9) th/mm3 Eos # (Auto) (0.0-0.4) th/mm3 Baso # (Auto) (0.0-0.2) th/mm3 WBC Differential Diff Scan Differential Comment PT (9.8-11.6) sec INR Ratio APTT (24.3-30.1) sec Sodium 140 (136-145) meq/L Potassium 3.9 (3.5-5.1) meq/L Chloride 107 (98-107) meq/L Carbon Dioxide 20.1 L (21.0-32.0) meq/L Anion Gap 13 (5-15) meq/L BUN 8 (7-18) mg/dL Creatinine 1.64 H (0.60-1.30) mg/dL Estimated GFR 56 L (>89) mL/min Random Glucose 99 (74-106) mg/dL Calcium 8.3 L (8.5-10.1) mg/dL Magnesium 2.4 (1.5-2.5) mg/dL Total Bilirubin 0.3 (0.2-1.0) mg/dL AST 77 H (15-37) U/L ALT 48 (12-78) U/L Alkaline Phosphatase 122 H (45-117) U/L Troponin I Less than 0.02 L (0.02-0.05) ng/mL B-Natriuretic Peptide (0-100) pg/mL Total Protein 8.6 H (6.4-8.2) g/dL Albumin 3.9 (3.4-5.0) g/dL Lipase 683 H (73-393) U/L Serum Alcohol 339 H (0-5) mg/dL Imaging Data Radiologist's impression: Chest X-Ray 04/13/18 18:23 CONCLUSION: 1. No acute cardiopulmonary disease. Discharge Plan Discharge Disposition Patient Disposition: 30 Still Patient Discharge Condition Condition: Stable Discharge Details Diagnosis: Hematemesis, Acute kidney injury Physicians Team ED Provider: Zoila Menjivar Primary Care Provider: John Crenshaw Rxs /Orders / Referrals /Forms Prescriptions: No Action hydralazine 100 mg Tablet 100 mg PO TID Qty: 90 RF: 0 pantoprazole 40 mg Tablet,Delayed Release (Dr/Ec) 40 mg PO BID Qty: 60 RF: 0 lswmimidgauy-wcv-npck-FA-vit K [Adults Multivitamin] 18 mg iron-400 mcg-25 mcg Tablet 1 tab PO DAILY Qty: 30 RF: 0 thiamine HCl (vitamin B1) 100 mg Tablet 100 mg PO DAILY Qty: 30 RF: 0 folic acid 1 mg Tablet 1 mg PO DAILY Qty: 30 RF: 0 carvedilol [Coreg] 25 mg Tablet 25 mg PO BID Qty: 60 RF: 0 ondansetron HCl [Zofran] 8 mg Tablet 8 mg PO TID PRN (Reason: Nausea And Vomiting) Qty: 20 RF: 0 Discharge Interventions Interventions: Vital Signs Last Done: 04/13/18 18:05 Status ED Status: With Doctor
[2018-04-13 18:46] LABS: Baso # (Auto) 0.1 th/mm3 (0.0-0.2); Baso % (Auto) 1.1 % (0.0-2.0); Eos # (Auto) 0.1 th/mm3 (0.0-0.4); Hematocrit 30.1 % (39.0-51.0); Hemoglobin 10.8 gm/dL (13.0-17.0); Lymph # (Auto) 2.5 th/mm3 (1.0-4.8); Lymph % (Auto) 43.3 % (9.0-44.0); Mean Corpuscular HGB Conc 35.8 % (32.0-36.0); Mean Corpuscular Hemoglobin 28.3 pg (27.0-34.0); Mean Corpuscular Volume 79.1 fL (80.0-100.0); Mean Platelet Volume 7.1 fL (7.0-11.0); Mono # (Auto) 0.4 th/mm3 (0.0-0.9); Mono % (Auto) 7.1 % (0.0-8.0); Neut # (Auto) 2.7 th/mm3 (1.8-7.7); Neut % (Auto) 47.5 % (16.0-70.0); Platelet Count 288 th/mm3 (150-450); Red Blood Count 3.81 mil/mm3 (4.50-5.90); White Blood Count 5.8 th/mm3 (4.0-11.0)
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
[2018-04-13 18:58] LABS: Activated Partial Thrombo Time 25.9 sec (24.3-30.1); Prothrombin Time 10.5 sec (9.8-11.6)
[2018-04-13 19:33] LABS: Alanine Aminotransferase 48 U/L (12-78)
[2018-04-13 19:37] LABS: Alkaline Phosphatase 122 U/L (45-117); Total Protein 8.6 g/dL (6.4-8.2)
[2018-04-13 19:38] LABS: Alcohol 339 mg/dL (0-5)
[2018-04-13 19:39] LABS: Albumin 3.9 g/dL (3.4-5.0); Anion Gap 13 meq/L (5-15); Aspartate Aminotransferase 77 U/L (15-37); Blood Urea Nitrogen 8 mg/dL (7-18); Calcium 8.3 mg/dL (8.5-10.1); Carbon Dioxide 20.1 meq/L (21.0-32.0); Chloride 107 meq/L (98-107); Glomerular Filtration Rate 56 mL/min (>89); Glucose,Random 99 mg/dL (74-106); Magnesium 2.4 mg/dL (1.5-2.5); Potassium 3.9 meq/L (3.5-5.1); Sodium 140 meq/L (136-145)
[2018-04-13 19:40] LABS: Lipase 683 U/L (73-393)
[2018-04-13] MEDS ORDERED: Sod Chloride 0.9% Inj 1,000 ML IV.SIG ONE (19:43)
[2018-04-13] MEDS ORDERED: Haloperidol Inj 5 MG/ML Ampul IV.PUSH PRN (20:02)
[2018-04-13] MEDS ORDERED: LORazepam 1 MG Tablet PO PRN (20:02)
[2018-04-13] MEDS: Sod Chloride 0.9% Inj 1,000 ML IV.CONT SCH (20:14)
[2018-04-13 21:13] LABS: Hematocrit 28.6 % (39.0-51.0); Hemoglobin 9.7 gm/dL (13.0-17.0)
[2018-04-13] MEDS: Carvedilol 12.5 MG Tablet PO SCH (21:13)
--- NOTE | 2018-04-13 21:58 | P.HPIM ---
History of Present Illness Primary Care Physician: John Crenshaw DO History of Present Illness: 42 y/o male with a history of alcohol abuse, peptic ulcer, and HTN presented to the ED with complaints of bright red blood in his emesis x 2 today. Patient states he had about 5-6 beer today and when he vomited he noticed blood each time. He states he knows he need to stop drinking because he has been scoped many times. He denies any chest pain, sob, fever or chills. Has not followed up with a GI outpatient but thinks he is suppose to next week. Last EGD in January showed esophagitis and a Small hiatal hernia PMFSH - History History Provided By: Patient - Medical History Medical History: Medical History (Last Updated 03/19/18 @ 06:24 by John Arthur) CKD (chronic kidney disease) GI bleed Hypertension Wrist fracture - Surgical History Surgical History: Surgical History (Last Updated 03/19/18 @ 06:24 by John Arthur) H/O exploratory laparotomy - Tobacco History Second Hand Smoke Exposure: Yes Tobacco Use In Past 30 Days: Yes Smoking Status: Current every day smoker Tobacco Type: Cigarettes - Alcohol History How Often Do You Have a Drink Containing Alcohol: 4 or more times a week - Substance Use History Substance History: No History of Abuse - Travel History Recent Travel Out of the Country Within the Last 8 Weeks: No - Immunization History Tetanus Immunization: Unsure Hx Influenza Vaccine This Season: No Medications and Allergies Active Medications: Active Medications Carvedilol (Coreg) 25 mg PO BID [facility] Last Admin: 04/13/18 21:13 Dose: 25 mg Flumazenil (Romazecon Inj) 0.2 mg IV.PUSH Q1M PRN PRN Reason: OVERSEDATION Folic Acid (Folic Acid) 1 mg PO DAILY [facility] Haloperidol Lactate (Haldol Inj) 1 mg IV.PUSH Q15M PRN PRN Reason: for severe agitation Hydralazine HCl (Apresoline) 100 mg PO TID [facility] Last Admin: 04/13/18 21:13 Dose: 100 mg Sodium Chloride (Ns Inj) 1,000 mls @ 100 mls/hr IV.CONT .Q10H [facility] Last Admin: 04/13/18 20:14 Dose: 100 mls/hr Lorazepam (Ativan) 1 mg PO Q4H PRN PRN Reason: for CIWA 8-10 Lorazepam (Ativan) 2 mg PO Q2H PRN PRN Reason: for CIWA 11-14 Lorazepam (Ativan Inj) 2 mg IV.PUSH Q2H PRN PRN Reason: for CIWA 11-14 Lorazepam (Ativan Inj) 2 mg IV.PUSH Q1H PRN PRN Reason: for CIWA 15-20 Lorazepam (Ativan Inj) 2 mg IV.PUSH Q15M PRN PRN Reason: for CIWA > 20 Lorazepam (Ativan Inj) 1 mg IV.PUSH Q4H PRN PRN Reason: for CIWA 8-10 Ondansetron HCl (Zofran Inj) 4 mg IV.PUSH Q6H PRN PRN Reason: NAUSEA OR VOMITING Pantoprazole Sodium (Protonix Inj) 40 mg IV.PUSH Q12H CLAIRE Vit/Calcium/Iron/Folic Ac (Stuartnatal Plus 3) 1 tab PO DAILY CLAIRE Sodium Chloride (Ns Flush) 2 ml IV.FLUSH PRN PRN PRN Reason: FLUSH AFTER USING IV ACCESS Thiamine HCl (Vitamin B1) 100 mg PO DAILY CLAIRE Allergies Allergy/AdvReac Type Severity Reaction Status Date / Time clonidine Allergy Severe SOB, Verified 03/19/18 07:12 Facial edema, Dizziness, Nausea lisinopril Allergy Severe Swelling Verified 03/19/18 07:12 nifedipine Allergy Intermediate Swelling Verified 03/19/18 07:12 Exam Vital signs: Vital Signs 04/13/18 18:02 04/13/18 18:05 04/13/18 21:18 Temperature 98.3 F Pulse Rate 101 H 96 H 93 H Respiratory Rate 20 18 18 Blood Pressure 104/76 140/79 144/99 H Pulse Oximetry 99 98 Intake & Output 04/13/18 04/13/18 04/14/18 06:59 18:59 06:59 Weight 76.204 kg Narrative: GENERAL: This is a well-nourished, well-developed patient, in no apparent distress. CARDIOVASCULAR: Regular rate and rhythm without murmurs, gallops, or rubs. RESPIRATORY: Clear to auscultation. Breath sounds equal bilaterally. No wheezes , rales, or rhonchi. GASTROINTESTINAL: Abdomen soft, non-tender, nondistended. Normal active bowel sounds MUSCULOSKELETAL: Extremities without clubbing, cyanosis, or edema. NEURO: Alert & Oriented x4 to person, place, time, situation. Moves all ext x4 Results - Labs CBC & Chem 7: 04/13/18 20:20 04/13/18 19:05 Labs: Short CBC 04/13/18 04/13/18 Range/Units 18:28 20:20 WBC 5.8 (4.0-11.0) th/mm3 Hgb 10.8 L 9.7 L (13.0-17.0) gm/dL Hct 30.1 L 28.6 L (39.0-51.0) % Plt Count 288 D (150-450) th/mm3 BMP 04/13/18 19:05 Sodium 140 Potassium 3.9 Chloride 107 Carbon Dioxide 20.1 L BUN 8 Creatinine 1.64 H Calcium 8.3 L Cardiac Enzymes 04/13/18 Range/Units 19:05 Troponin I Less than 0.02 L (0.02-0.05) ng/mL Liver Function 04/13/18 Range/Units 19:05 Total Bilirubin 0.3 (0.2-1.0) mg/dL AST 77 H (15-37) U/L ALT 48 (12-78) U/L Alkaline Phosphatase 122 H (45-117) U/L Albumin 3.9 (3.4-5.0) g/dL - Imaging Impressions Chest X-Ray 04/13/18 18:23 CONCLUSION: 1. No acute cardiopulmonary disease. Caprini VTE Risk Assessment Caprini VTE Risk Assessment: No/Low Risk (score <= 1) Caprini Risk Assessment Model: Point Value = 1 Point Value = 2 Point Value = 3 Point Value = 5 Age 41-60 Minor surgery BMI > 25 kg/m2 Swollen legs Varicose veins or History of unexplained or recurrent spontaneous Oral contraceptives or hormone replacement Sepsis (< 1 month) Serious lung disease, including pneumonia (< 1 month) Abnormal pulmonary function Acute myocardial infarction Congestive heart failure (< 1 month) History of inflammatory bowel disease Medical patient at bed rest Age 61-74 Arthroscopic surgery Major open surgery (> 45 min) Laparoscopic surgery (> 45 min) Malignancy Confined to bed (> 72 hours) Immobilizing plaster cast Central venous access Age >= 75 History of VTE Family history of VTE Factor V Leiden Prothrombin [id number] Lupus anticoagulant Anticardiolipin antibodies Elevated serum homocysteine Heparin-induced thrombocytopenia Other congenital or acquired thrombophilia Stroke (< 1 month) Elective arthroplasty Hip, pelvis, or leg fracture Acute spinal cord injury (< 1 month) Prophylaxis Regimen: Total Risk Factor Score Risk Level Prophylaxis Regimen 0-1 Low Early ambulation 2 Moderate Order ONE of the following: *Sequential Compression Device (SCD) *Heparin 5000 units SQ BID 3-4 Higher Order ONE of the following medications: *Heparin 5000 units SQ TID *Enoxaparin/Lovenox 40 mg SQ daily (WT < 150 kg, CrCl > 30 mL/min) *Enoxaparin/Lovenox 30 mg SQ daily (WT < 150 kg, CrCl > 10-29 mL/min) *Enoxaparin/Lovenox 30 mg SQ BID (WT < 150 kg, CrCl > 30 mL/min) AND/OR *Sequential Compression Device (SCD) 5 or more Highest Order ONE of the following medications: *Heparin 5000 units SQ TID (Preferred with Epidurals) *Enoxaparin/Lovenox 40 mg SQ daily (WT < 150 kg, CrCl > 30 mL/min) *Enoxaparin/Lovenox 30 mg SQ daily (WT < 150 kg, CrCl > 10-29 mL/min) *Enoxaparin/Lovenox 30 mg SQ BID (WT < 150 kg, CrCl > 30 mL/min) AND *Sequential Compression Device (SCD) Assessment and Plan - Plan Upper GI bleed, hgb stable, likely due to a peptic ulcer -Protonix IV -Consult GI for evaluation -Serial H&H -NPO PEPE, creatine 1.6, .9 baseline, likely dehydration -Cont IVF as above -Trend creatine -Avoid nephrotoxins Alcohol abuse -Encouraged to quit -CIWA protocol HTN, chronic -Resume home medications and monitor vitals DVT prophylaxis: SCDs Discussed Condition With: patient and rn
[2018-04-14 04:48] VITALS: RESP 16
[2018-04-14] MEDS ORDERED: Pantoprazole Inj 40 MG Vial IV.PUSH SCH (06:00)
[2018-04-14] MEDS: Sod Chloride 0.9% Inj 1,000 ML IV.CONT SCH (06:15)
[2018-04-14 07:46] VITALS: BP 172/101; TEMP 98
[2018-04-14 08:10] VITALS: O2SAT 100
[2018-04-14] MEDS: Carvedilol 12.5 MG Tablet PO SCH (08:15)
[2018-04-14 08:23] LABS: Baso # (Auto) 0.1 th/mm3 (0.0-0.2); Baso % (Auto) 1.2 % (0.0-2.0); Eos # (Auto) 0.1 th/mm3 (0.0-0.4); Eos % (Auto) 1.5 % (0.0-4.0); Hemoglobin 9.2 gm/dL (13.0-17.0); Lymph # (Auto) 1.8 th/mm3 (1.0-4.8); Lymph % (Auto) 38.2 % (9.0-44.0); Mean Corpuscular HGB Conc 32.8 % (32.0-36.0); Mean Corpuscular Hemoglobin 26.2 pg (27.0-34.0); Mean Platelet Volume 7.1 fL (7.0-11.0); Mono # (Auto) 0.3 th/mm3 (0.0-0.9); Mono % (Auto) 7.1 % (0.0-8.0); Neut # (Auto) 2.5 th/mm3 (1.8-7.7); Platelet Count 223 th/mm3 (150-450); Red Blood Count 3.51 mil/mm3 (4.50-5.90); Red Cell Distribution Width 25.5 % (11.6-17.2); White Blood Count 4.8 th/mm3 (4.0-11.0)
[2018-04-14 08:25] LABS: Anion Gap 11 meq/L (5-15); Blood Urea Nitrogen 6 mg/dL (7-18); Calcium 8.1 mg/dL (8.5-10.1); Carbon Dioxide 19.9 meq/L (21.0-32.0); Chloride 109 meq/L (98-107); Glomerular Filtration Rate Greater Than 89 mL/min (>89); Glucose,Random 80 mg/dL (74-106); Lipase 376 U/L (73-393); Sodium 140 meq/L (136-145)
[2018-04-14] MEDS ORDERED: Folic Acid 1 MG Tablet PO SCH (09:00)
[2018-04-14] MEDS: Prenatal Vit/Ca/Iron/Folic Acid Tablet PO SCH ×3 (09:58→10:11)
[2018-04-14 10:47] VITALS: PULSE 85
--- NOTE | 2018-04-15 08:19 | P.CONGI ---
History of Present Illness Consult date: 04/14/18 Consult reason: GI bleed Chief complaint: Hematemesis, acute kidney injury History of Present Illness: This is a 42-year-old male who came into the emergency room on 04/14/2018 complaining of hematemesis 2 today according to the record. He also is a daily alcohol drinker mostly of beer and has recently been struggling more with GI symptoms of heartburn gas bloating tired and weakness. During my exam patient states that he did not remember vomiting any blood the day before but does have a history of GI bleed. Patient had EGD in January here in the hospital that showed esophagitis and a small hiatal hernia PillCam was recommended but patient has not had any outpatient follow-up. Currently he denies any shortness of breath fever, headaches. Patient does note some loose stools off and on for the past 2 months but chief complaint is generalized weakness and fatigue. Hemoglobin on admission was 10.8 which decreased to 9.2, bilirubin 0.3 , AST 77, ALT 48. Patient also had a HIDA scan on 727 that showed some biliary dyskinesia. Patient denies any family history of colon cancer. Upper endoscopy was discussed with patient to be performed this a.m. and he initially agreed. <Michaela Gentile - Last Filed: 04/15/18 08:11> Review of Systems All other systems reviewed negative except as stated in HPI <Michaela Gentile - Last Filed: 04/15/18 08:11> PMFSH - History History Provided By: Patient - Medical History Medical History: Medical History (Last Updated 03/19/18 @ 06:24 by John Arthur) CKD (chronic kidney disease) GI bleed Hypertension Wrist fracture - Surgical History Surgical History: Surgical History (Last Updated 03/19/18 @ 06:24 by John Arthur) H/O exploratory laparotomy - Tobacco History Second Hand Smoke Exposure: Yes Tobacco Use In Past 30 Days: Yes Smoking Status: Current every day smoker Tobacco Type: Cigarettes - Alcohol History How Often Do You Have a Drink Containing Alcohol: 2 to 4 times a month - Substance Use History Substance History: No History of Abuse - Travel History Recent Travel in the [place] Within the Last 8 Weeks: No Recent Travel Out of the Country Within the Last 8 Weeks: No - Immunization History Tetanus Immunization: Unsure Hx Influenza Vaccine This Season: No <SeferinoMichaela Henderson - Last Filed: 04/15/18 08:11> - Medical History Medical History: Medical History (Last Updated 03/19/18 @ 06:24 by John Arthur) CKD (chronic kidney disease) GI bleed Hypertension Wrist fracture - Surgical History Surgical History: Surgical History (Last Updated 03/19/18 @ 06:24 by John Arthur) H/O exploratory laparotomy <Brooks Hargrove - Last Filed: 04/15/18 18:33> Medications and Allergies <Michaela Gentile - Last Filed: 04/15/18 08:11> <Brooks Hargrove - Last Filed: 04/15/18 18:33> Allergies Allergy/AdvReac Type Severity Reaction Status Date / Time clonidine Allergy Severe SOB, Verified 03/19/18 07:12 Facial edema, Dizziness, Nausea lisinopril Allergy Severe Swelling Verified 03/19/18 07:12 nifedipine Allergy Intermediate Swelling Verified 03/19/18 07:12 Exam Vital signs: Intake & Output 04/14/18 04/15/18 04/15/18 18:59 06:59 18:59 Other: Date of Last Bowel Movement 04/13/18 - Constitutional mild distress - Routine HEENT Exam Head: Present: normocephalic ENT: Present: mucous membranes moist - Routine Neck Exam Present: supple - Routine Respiratory Exam Present: accessory muscle use (No obvious shortness of breath volumes normal and unlabored) - Routine Cardiovascular Exam Present: S1, S2 - Routine Abdominal Exam Present: soft (Round, active bowel sounds) - Routine Skin Exam Present: intact - Routine Neurological Exam Present: alert (Awake answering current simple questions but fair historian) <SeferinoMichaela Henderson - Last Filed: 04/15/18 08:11> Vital signs: Intake & Output 04/14/18 04/15/18 04/15/18 18:59 06:59 18:59 Other: Date of Last Bowel Movement 04/13/18 <Brooks Hargrove - Last Filed: 04/15/18 18:33> Results - Labs CBC & Chem 7: 04/14/18 07:35 04/14/18 07:35 Labs: Laboratory Results - last 24 hr 04/14/18 04/14/18 07:35 07:35 WBC 4.8 RBC 3.51 L Hgb 9.2 L Hct 28.0 L MCV 80.0 MCH 26.2 L MCHC 32.8 RDW 25.5 H Plt Count 223 MPV 7.1 Prelim Diff (Auto) Slide review pending Neut % (Auto) 52.0 Lymph % (Auto) 38.2 [place] % (Auto) 7.1 Eos % (Auto) 1.5 Baso % (Auto) 1.2 Neut # (Auto) 2.5 Lymph # (Auto) 1.8 [place] # (Auto) 0.3 Eos # (Auto) 0.1 Baso # (Auto) 0.1 WBC Differential . Diff Scan Auto diff confirmed Differential Comment . Sodium 140 Potassium 4.0 Chloride 109 H Carbon Dioxide 19.9 L Anion Gap 11 BUN 6 L Creatinine 0.90 Estimated GFR Greater than 89 Random Glucose 80 Calcium 8.1 L Lipase 376 <Michaela Gentile - Last Filed: 04/15/18 08:11> - Labs CBC & Chem 7: 04/14/18 07:35 04/14/18 07:35 <Brooks Hargrove E - Last Filed: 04/15/18 18:33> Assessment and Plan - Plan GI bleed, upper hematemesis History of daily EtOH consumption Weakness fatigue Dyspepsia Epigastric discomfort and bloating 42-year-old with a history of alcohol abuse peptic ulcer disease now has hematemesis weakness fatigue dyspepsia. According to the record patient had drank 5-6 beers before coming in and started vomiting and noticed blood each time. EGD was discussed with patient this morning and he initially agreed but, did not want to be n.p.o. and decided that he would go home. Patient did not remember having hematemesis the day before and felt like he was feeling better now. Patient checked out AMA. Encourage patient to have outpatient follow-up. Patient was seen per myself, Dr. Hargrove, note was written on his behalf <Michaela Gentile - Last Filed: 04/15/18 08:11> - Attending Attestation Patient seen and examined Agree with above Continue with current supportive care Monitor labs Follow-up with GI post discharge <Brooks Hargrove - Last Filed: 04/15/18 18:33>
== END 2018-04-14 11:11 | disposition left against medical advice (07) ==
LOC: NEPE 18:00 → NEDA 18:00 → NEPHCDU 04-14 00:36
PROVIDERS: ADMIT Hospitalist; ATTEND Hospitalist